=== PATIENT | male | born 1970 | race Caucasian/White ===

== ENCOUNTER 2016-05-18 20:56 | Observation (INO) | payer BC ==
[2016-05-18] MEDS ORDERED: ASPIRIN ONE (21:05)
[2016-05-18] MEDS ORDERED: NITROSTAT SL ONE (21:06)
--- NOTE | 2016-05-18 21:27 | DR.GENAD ---
HPI - PCP Primary Care Physician: VIV - Complaint/Symptoms Chief Complaint Doctors Comments: Patient states that he had left lateral chest pain onset yesteday that has gotten worse during the day. Ther was no radiation or diaphoresis. The pain is a level of 4. He also complains of dyspnea Chief Complaint:: CHEST PAIN, HARD TO BREATH - Source History Provided: Patient, Family Member - Mode of Arrival Mode of Arrival: Ambulatory - Timing Onset of Chief Complaint: 05/17/16 PMH - PMH Past Medical History: Yes Past Medical History: Anemia, Arthritis, Diabetes, Gout, Hypertension, Sleep Apnea Past Medical History Comment: RESTRICTIVE LUNG DISEASE Past Surgical History: Yes Surgical History: CABG/Valve Surgery, Cholecystectomy, Ortho Surgery, Other - Family History History of Family Medical Conditions: Yes Family Medical History: Cancer, [place] - Social History Does patient currently use any type of tobacco product: No Have you used tobacco products in the last 12 months: No Type of Tobacco Use: None Does any household member use tobacco: No Alcohol Use: None Do you use any recreational Drugs:: No Lives With: Family Lives Where: Home - infectious screening In the last 2 months have you had wt loss of >10#?: NO Have you had fever, night sweats or hemotysis?: No Have you traveled outside the country in the last 6 months?: No Isolation: Standard ROS - Review of Systems Constitutional: No Symptoms Reported Eyes: No Symptoms Reported ENTM: No Symptoms Reported Respiratoy: No Symptoms Reported Cardiovascular: No Symptoms Reported, Chest Pain Genitourinary: No Symptoms Reported Neurological: No Symptoms Reported Musculoskeletal: Chest wall Integumentary: No Symptoms Reported Hematologic/Lymphatic: No Symptoms Reported Endocrine: No Symptoms Reported Psychiatric: No Symptoms Reported All Other Systems: Reviewed and Negative PE - Vital Signs Vitals: Temperature 98.2 F Pulse Rate 80 Respiratory Rate 16 Blood Pressure [Right Arm] 102/66 Blood Pressure [Left Arm] 125/84 Blood Pressure [Standing] 106/87 Blood Pressure [Sitting] 108/76 Blood Pressure [Lying] 114/73 Blood Pressure 155/89 O2 Sat by Pulse Oximetry 95 - General Limitations: No Limitations General Appearance: Alert, In No Apparent Distress - Head Head Exam: Normal Inspection, Atraumatic - Eyes Eye exam: Normal Appearance, PERRL, EOMI - ENT ENT Exam: Normal Exam External Ear Exam: Normal External Inspection TM/Canal Exam: Bilateral Normal Nose Exam: Normal Nose Exam Mouth Exam: Normal Inspection Throat Exam: Normal Inspection - Neck Neck Exam: Normal Inspection - Chest Chest Inspection: Normal Inspection - Respiratory Respiratory Exam: Normal Lung Sounds Bilat Respiratory Exam: Bilateral Clear to Auscultation - Cardiovascular Cardiovascular Exam: Regular Rate, Normal Rhythm - Abdominal Exam Abdominal Exam: Normal Inspection Abdominal Tenderness: negative: RUQ, RLQ, LUQ, LLQ, Epigastrium, Suprapubic, Diffuse, Mild, Moderate, Severe, Other - Extremities Extremities Exam: Normal Inspection, Full ROM - Back Back Exam: Normal Inspection, Full ROM - Neurologic Neurological Exam: Alert, Oriented X3, CN II-XII Intact - Psychiatric Psychiatric Exam: Normal Affect, Normal Mood - Skin Skin Exam: Warm, Dry, Intact Course - Reevaluation 1st: Improved - Consultation Called: 10:25 (Case discussed with Dr Rosado; agreed to admit to r/o PR) ROR - Labs Reviewed Result Diagrams: 05/18/16 21:15 05/18/16 21:15 Laboratory: WBC 8.8 X10^3/uL (3.6-10.0) 05/18/16 21:15 RBC 5.46 X10^6/uL (4.7-6.0) 05/18/16 21:15 Hgb 16.1 g/dL (13.5-18.0) 05/18/16 21:15 Hct 47.6 % (42.0-54.0) 05/18/16 21:15 MCV 87.2 fL (80.0-100.0) 05/18/16 21:15 MCH 29.5 pg (27.0-34.0) 05/18/16 21:15 MCHC 33.8 g/dL (33.0-35.0) 05/18/16 21:15 RDW 14.7 % (11.6-16.5) 05/18/16 21:15 Plt Count 150 X10^3/uL (150.0-450.0) 05/18/16 21:15 MPV 9.1 fL (7.4-11.0) 05/18/16 21:15 Neut % 68.0 % (42.0-75.0) 05/18/16 21:15 Lymph % 23.3 % (21.0-51.0) 05/18/16 21:15 [place] % 6.3 % (0.0-13.0) 05/18/16 21:15 Eos % 1.2 % (0.9-2.9) 05/18/16 21:15 Baso % 1.2 % (0.2-1.0) H 05/18/16 21:15 Neut # 6.0 x10^3/uL (2.2-4.8) H 05/18/16 21:15 Lymph # 2.0 X10^3/uL (1.3-2.9) 05/18/16 21:15 [place] # 0.5 x10^3/uL (0.3-0.8) 05/18/16 21:15 Eos # 0.1 x10^3/uL (0.0-0.2) 05/18/16 21:15 Baso # 0.1 X10^3/uL (0.0-0.1) 05/18/16 21:15 Absolute Nucleated RBC 0.2 /100WBC 05/18/16 21:15 INR Target Range - 05/18/16 21:15 INR 1.04 (0.8-1.3) 05/18/16 21:15 PTT 30.1 SECONDS (22.9-36.5) 05/18/16 21:15 PTT Comment - 05/18/16 21:15 Sodium 145 mmol/L (136-145) 05/18/16 21:15 Corrected Sodium 146 mmol/L (136-145) H 05/18/16 21:15 Potassium 3.7 mmol/L (3.5-5.1) 05/18/16 21:15 Chloride 108 mmol/L (98-107) H 05/18/16 21:15 Carbon Dioxide 27.8 mmol/L (21-32) 05/18/16 21:15 BUN 14 mg/dL (7-18) 05/18/16 21:15 Creatinine 1.38 mg/dL (0.70-1.30) H 05/18/16 21:15 Est GFR (MDRD) Af Amer > 60 (>60) 05/18/16 21:15 Est GFR (MDRD) Non-Af 59 (>60) 05/18/16 21:15 Glucose 139 mg/dL (65-99) H 05/18/16 21:15 Calcium 8.3 mg/dL (8.5-10.1) L 05/18/16 21:15 Corrected Calcium TNP 05/18/16 21:15 Magnesium 1.9 mg/dL (1.7-2.9) 05/18/16 21:15 Total Bilirubin 0.60 mg/dL (0.2-1.0) 05/18/16 21:15 AST 33 Units/L (15-37) 05/18/16 21:15 ALT 47 Units/L (12-78) 05/18/16 21:15 Alkaline Phosphatase 135 Units/L (46-116) H 05/18/16 21:15 Creatine Kinase 164 Units/L (39-308) 05/18/16 21:15 CK-MB (CK-2) 1.7 ng/mL (0-4.0) 05/18/16 21:15 CK/CKMB % Calc 1.0 % (<4) 05/18/16 21:15 Troponin I < 0.02 ng/mL (0-1.5) 05/18/16 21:15 B-Natriuretic Peptide 64.9 pg/mL (0-79) 05/18/16 21:15 Total Protein 6.8 g/dL (6.4-8.2) 05/18/16 21:15 Albumin 3.9 g/dL (3.4-5.0) 05/18/16 21:15 Globulin 2.9 g/dL (2.5-4.5) 05/18/16 21:15 Albumin/Globulin Ratio 1.3 Ratio (1.1-2.1) 05/18/16 21:15 - XRAY XRAY Interpreted by: Radiologist (Chest: No acute cardiopulmonary disease) - Diagnosis Discharge Problem: Chest pain, rule out acute myocardial infarction Chest pain Qualifiers: Chest pain type: unspecified Qualified Code(s): R07.9 - Chest pain, unspecified - Discharge Plan Condition: Stable - Follow ups/Referrals Follow ups/Referrals: LATA NAM [Primary Care Provider] - 3 days - Instructions
--- NOTE | 2016-05-18 21:36 | RAD ---
HISTORY: 45-year-old male with chest pain and shortness of breath. Study: Single frontal view of the chest. Comparison: Chest radiograph December 06, 2015. Findings: Median sternotomy wires unchanged. The trachea is midline. The cardiac silhouette is unremarkable. Low lung volumes. The lungs are clear without focal infiltrate or effusion. The bony thorax is unr emarkable. IMPRESSION: 1. No acute cardiopulmonary disease. Reported By:
[2016-05-18 21:42] LABS: BASOPHILS # (AUTO) 0.1 X10^3/uL (0.0-0.1); BASOPHILS % (AUTO) 1.2 % (0.2-1.0); EOSINOPHILS # (AUTO) 0.1 x10^3/uL (0.0-0.2); EOSINOPHILS % (AUTO) 1.2 % (0.9-2.9); HEMATOCRIT 47.6 % (42.0-54.0); HEMOGLOBIN 16.1 g/dL (13.5-18.0); LYMPHOCYTES % (AUTO) 23.3 % (21.0-51.0); MEAN CORPUSCULAR HEMOGLOBIN 29.5 pg (27.0-34.0); MEAN CORPUSCULAR HGB CONC 33.8 g/dL (33.0-35.0); MEAN CORPUSCULAR VOLUME 87.2 fL (80.0-100.0); MEAN PLATELET VOLUME 9.1 fL (7.4-11.0); MONOCYTES # (AUTO) 0.5 x10^3/uL (0.3-0.8); MONOCYTES % (AUTO) 6.3 % (0.0-13.0); PLATELET COUNT 150 X10^3/uL (150.0-450.0); RED BLOOD COUNT 5.46 X10^6/uL (4.7-6.0); RED CELL DISTRIBUTION WIDTH 14.7 % (11.6-16.5); WHITE BLOOD COUNT 8.8 X10^3/uL (3.6-10.0)
[2016-05-18 21:43] LABS: ALANINE AMINOTRANSFERASE 47 Units/L (12-78); ALBUMIN 3.9 g/dL (3.4-5.0); ALKALINE PHOSPHATASE 135 Units/L (46-116); ASPARTATE AMINO TRANSFERASE 33 Units/L (15-37); BLOOD UREA NITROGEN 14 mg/dL (7-18); CALCIUM 8.3 mg/dL (8.5-10.1); CARBON DIOXIDE 27.8 mmol/L (21-32); CHLORIDE 108 mmol/L (98-107); COR NA(FOR HYPERGLY) 146 mmol/L (136-145); CREATININE 1.38 mg/dL (0.70-1.30); GLUCOSE 139 mg/dL (65-99); MAGNESIUM 1.9 mg/dL (1.7-2.9); SODIUM 145 mmol/L (136-145); TOTAL PROTEIN 6.8 g/dL (6.4-8.2); eGFR BLACK RACES > 60 (>60); eGFR NON BLACK RACES 59 (>60)
[2016-05-18 22:00] LABS: CREATINE KINASE 164 Units/L (39-308); CREATINE KINASE MB 1.7 ng/mL (0-4.0); TROPONIN I < 0.02 ng/mL (0-1.5)
[2016-05-18] MEDS ORDERED: NS 1000 ML 1,000 ML IV SCH (22:00)
[2016-05-18] MEDS ORDERED: MORPHINE SULFATE INJ 4 MG IVP PRN (22:40)
[2016-05-18] MEDS ORDERED: ZOFRAN INJ 4 MG VIAL IVP PRN (22:40)
[2016-05-18] MEDS ORDERED: NS 1000 ML 1,000 ML ONE (23:14)
[2016-05-18] MEDS: NS 1000 ML 1,000 ML IV SCH (23:16)
[2016-05-18 23:46] VITALS: BMI 38.2
[2016-05-19] MEDS: REQUIP PO SCH ×5 (00:07→21:07)
[2016-05-19 05:24] LABS: BASOPHILS # (AUTO) 0.1 X10^3/uL (0.0-0.1); BASOPHILS % (AUTO) 1.2 % (0.2-1.0); EOSINOPHILS # (AUTO) 0.1 x10^3/uL (0.0-0.2); HEMOGLOBIN 15.3 g/dL (13.5-18.0); LYMPHOCYTES # (AUTO) 2.1 X10^3/uL (1.3-2.9); LYMPHOCYTES % (AUTO) 31.3 % (21.0-51.0); MEAN CORPUSCULAR HEMOGLOBIN 29.2 pg (27.0-34.0); MEAN CORPUSCULAR HGB CONC 33.2 g/dL (33.0-35.0); MEAN PLATELET VOLUME 8.7 fL (7.4-11.0); MONOCYTES # (AUTO) 0.5 x10^3/uL (0.3-0.8); MONOCYTES % (AUTO) 6.7 % (0.0-13.0); NEUTROPHILS # (AUTO) 3.9 x10^3/uL (2.2-4.8); NEUTROPHILS % (AUTO) 58.8 % (42.0-75.0); PLATELET COUNT 132 X10^3/uL (150.0-450.0); RED BLOOD COUNT 5.23 X10^6/uL (4.7-6.0); RED CELL DISTRIBUTION WIDTH 14.8 % (11.6-16.5); WHITE BLOOD COUNT 6.7 X10^3/uL (3.6-10.0)
[2016-05-19 05:30] LABS: ALANINE AMINOTRANSFERASE 44 Units/L (12-78); ALBUMIN 3.2 g/dL (3.4-5.0); ALKALINE PHOSPHATASE 110 Units/L (46-116); ASPARTATE AMINO TRANSFERASE 25 Units/L (15-37); BLOOD UREA NITROGEN 13 mg/dL (7-18); CALCIUM 7.9 mg/dL (8.5-10.1); CHLORIDE 110 mmol/L (98-107); CHOL/HDL RATIO 6.3 (0.0-5.0); CHOLESTEROL 146 mg/dL (0-200); CKMB % 1.5 % (<4); COR CA(FOR HYPOALB) 8.5 mg/dL (8.5-10.1); COR NA(FOR HYPERGLY) 145 mmol/L (136-145); CREATINE KINASE 108 Units/L (39-308); CREATINE KINASE MB 1.6 ng/mL (0-4.0); GLUCOSE 114 mg/dL (65-99); HDL CHOLESTEROL 23 mg/dL (40-60); MAGNESIUM 1.9 mg/dL (1.7-2.9); SODIUM 145 mmol/L (136-145); TOTAL PROTEIN 6.1 g/dL (6.4-8.2); TRIGLYCERIDES 185 mg/dL (0-150); TROPONIN I < 0.02 ng/mL (0-1.5); eGFR BLACK RACES > 60 (>60); eGFR NON BLACK RACES > 60 (>60)
[2016-05-19] MEDS: NS 1000 ML 1,000 ML IV SCH (05:32)
[2016-05-19 05:41] LABS: CARBON DIOXIDE 26.1 mmol/L (21-32)
[2016-05-19] MEDS ORDERED: ZESTRIL TAB 20 MG ONE (08:47)
[2016-05-19] MEDS ORDERED: ARIMIDEX PO SCH (09:00)
[2016-05-19] MEDS ORDERED: PATIENT'S HOME MEDICATION RESPIRATORY (Omeprazole [Prilosec 40 Mg] 40 MG) PO SCH (09:00)
[2016-05-19] MEDS ORDERED: [UNRECOGNIZED DRUG - OTHER] PO SCH (09:00)
[2016-05-19] MEDS ORDERED: [UNRECOGNIZED DRUG - OTHER] PO SCH (09:00)
[2016-05-19] MEDS: CELEXA PO SCH (09:04)
[2016-05-19] MEDS: FERROUS SULFATE PO SCH (09:05)
[2016-05-19] MEDS: MOBIC TAB 15 MG PO SCH (09:05)
[2016-05-19] MEDS: ZESTRIL TAB 20 MG PO SCH (09:05)
[2016-05-19] MEDS: MICRO K EXTEN CAP 10 MEQ PO SCH (09:05)
[2016-05-19] MEDS: PRILOSEC PO SCH (09:05)
[2016-05-19 10:04] LABS: CKMB % 1.6 % (<4); CREATINE KINASE 112 Units/L (39-308); CREATINE KINASE MB 1.8 ng/mL (0-4.0); TROPONIN I < 0.02 ng/mL (0-1.5)
[2016-05-19 11:35] LABS: BILIRUBIN,URINE NEGATIVE (NEGATIVE); BLOOD/HEMOGLOBIN,URINE NEGATIVE (NEGATIVE); GLUCOSE, URINE NEGATIVE (NEGATIVE); KETONES,URINE NEGATIVE (NEGATIVE); LEUKOCYTE ESTERASE ,URINE NEGATIVE (NEGATIVE); NITRITES,URINE NEGATIVE (NEGATIVE); PROTEIN,URINE NEGATIVE (NEGATIVE); UROBILINOGEN,URINE NORMAL (NORMAL)
[2016-05-19 11:43] LABS: APPEARANCE,URINE CLEAR (CLEAR); BACTERIA,URINE NEGATIVE /HPF (NEGATIVE); COLOR,URINE YELLOW (YELLOW); RBC,URINE NEGATIVE /HPF (NEGATIVE); SQUAMOUS EPITHELIAL CELL,UR NEGATIVE /HPF (NEGATIVE)
[2016-05-19 12:03] LABS: TOTAL PSA 0.83 ng/mL (0.13-4.0)
[2016-05-19] MEDS: NS 1/2 1000 ML IV 1,000 ML IV SCH (13:09)
[2016-05-19] MEDS: PRAVACHOL PO SCH (21:07)
[2016-05-19] MEDS: NITROSTAT SL PRN ×3 (22:47→22:57)
[2016-05-19] MEDS ORDERED: RESTORIL CAP 15 MG PO PRN (23:14)
[2016-05-19] MEDS ORDERED: TYLENOL 325 MG TAB PO PRN (23:28)
[2016-05-20] MEDS ORDERED: NS 1/2 1000 ML IV 1,000 ML IV ONE (00:08)
[2016-05-20] MEDS: NS 1/2 1000 ML IV 1,000 ML IV SCH (00:10)
[2016-05-20] MEDS: REQUIP PO SCH (05:17)
[2016-05-20] MEDS ORDERED: ZESTRIL TAB 20 MG ONE (08:46)
[2016-05-20] MEDS: PRAVACHOL PO SCH (08:53)
[2016-05-20] MEDS: MOBIC TAB 15 MG PO SCH (08:54)
[2016-05-20] MEDS: CELEXA PO SCH (08:54)
[2016-05-20] MEDS: FERROUS SULFATE PO SCH (08:54)
[2016-05-20] MEDS: ZESTRIL TAB 20 MG PO SCH (08:54)
[2016-05-20] MEDS: MICRO K EXTEN CAP 10 MEQ PO SCH (08:54)
[2016-05-20] MEDS: PRILOSEC PO SCH (08:54)
[2016-05-20 10:02] VITALS: BP 153/92
--- NOTE | 2016-05-20 11:22 | PCM.PROG ---
Progress Note - Progress Note for Day of Date: 05/19/16 - Subjective Subjective: CP, SOB - Past Medical Family Social History Past Med/Fam/Surg Hx: No changes since H&P Allergies: Allergies Prednisone [From Sterapred] Adverse Reaction (Severe, Verified 12/06/15 18:53) BLINDNESS ALL STEROIDS, NONE BY PO OR IM PT STATED HAS HAD JOINT INJECTIONS WITH NO REACTION. PT STATED ONLY THEY EYE DROPS CAUSED PROBLEMS - Review of Systems ROS: No change since H&P - Vital Signs and I&O's Vital Signs: Temperature 97.6 F Pulse Rate [Apical] 56 Pulse Rate [Left] 50 Respiratory Rate 21 Blood Pressure [Right Arm] 134/71 Blood Pressure [Left Arm] 153/92 O2 Sat by Pulse Oximetry 98 Intake and Output: Intake & Output 05/17/16 05/18/16 05/19/16 05/20/16 11:59 11:59 11:59 11:59 Intake Total 453 2556 Output Total 0 1850 Balance 453 706 - Physical Exam Oriented: Normal Eyes: Normal Ear: Normal Nose: Normal Throat: Normal, Tonsillar Hypertrophy Respiratory: Diminished Cardiovascular: Edema Auscultation: Bowel Sounds: Normal Palpation: Normal Tenderness: Normal Skin: Normal Musculoskeletal: Back:Thoracic, Back:Lumbar Speech Pattern: Clear, Appropriate - Laboratory and Diagnostics Result Diagrams: 05/19/16 05:00 05/19/16 05:00 Labs: Laboratory WBC 6.7 X10^3/uL (3.6-10.0) 05/19/16 05:00 RBC 5.23 X10^6/uL (4.7-6.0) 05/19/16 05:00 Hgb 15.3 g/dL (13.5-18.0) 05/19/16 05:00 Hct 46.0 % (42.0-54.0) 05/19/16 05:00 MCV 88.0 fL (80.0-100.0) 05/19/16 05:00 MCH 29.2 pg (27.0-34.0) 05/19/16 05:00 MCHC 33.2 g/dL (33.0-35.0) 05/19/16 05:00 RDW 14.8 % (11.6-16.5) 05/19/16 05:00 Plt Count 132 X10^3/uL (150.0-450.0) L 05/19/16 05:00 MPV 8.7 fL (7.4-11.0) 05/19/16 05:00 Neut % 58.8 % (42.0-75.0) 05/19/16 05:00 Lymph % 31.3 % (21.0-51.0) 05/19/16 05:00 [place] % 6.7 % (0.0-13.0) 05/19/16 05:00 Eos % 2.0 % (0.9-2.9) 05/19/16 05:00 Baso % 1.2 % (0.2-1.0) H 05/19/16 05:00 Neut # 3.9 x10^3/uL (2.2-4.8) 05/19/16 05:00 Lymph # 2.1 X10^3/uL (1.3-2.9) 05/19/16 05:00 [place] # 0.5 x10^3/uL (0.3-0.8) 05/19/16 05:00 Eos # 0.1 x10^3/uL (0.0-0.2) 05/19/16 05:00 Baso # 0.1 X10^3/uL (0.0-0.1) 05/19/16 05:00 Absolute Nucleated RBC 0.1 /100WBC 05/19/16 05:00 INR Target Range - 05/18/16 21:15 INR 1.04 (0.8-1.3) 05/18/16 21:15 PTT 30.8 SECONDS (22.9-36.5) 05/19/16 05:00 PTT Comment - 05/19/16 05:00 D-Dimer 219 ng/mL (0-400) 05/19/16 11:05 Sodium 145 mmol/L (136-145) 05/19/16 05:00 Corrected Sodium 145 mmol/L (136-145) 05/19/16 05:00 Potassium 3.6 mmol/L (3.5-5.1) 05/19/16 05:00 Chloride 110 mmol/L (98-107) H 05/19/16 05:00 Carbon Dioxide 26.1 mmol/L (21-32) 05/19/16 05:00 BUN 13 mg/dL (7-18) 05/19/16 05:00 Creatinine 1.20 mg/dL (0.70-1.30) 05/19/16 05:00 Est GFR (MDRD) Af Amer > 60 (>60) 05/19/16 05:00 Est GFR (MDRD) Non-Af > 60 (>60) 05/19/16 05:00 Glucose 114 mg/dL (65-99) H 05/19/16 05:00 Calcium 7.9 mg/dL (8.5-10.1) L 05/19/16 05:00 Corrected Calcium 8.5 mg/dL (8.5-10.1) 05/19/16 05:00 Magnesium 1.9 mg/dL (1.7-2.9) 05/19/16 05:00 Total Bilirubin 0.70 mg/dL (0.2-1.0) 05/19/16 05:00 AST 25 Units/L (15-37) 05/19/16 05:00 ALT 44 Units/L (12-78) 05/19/16 05:00 Alkaline Phosphatase 110 Units/L (46-116) 05/19/16 05:00 Creatine Kinase 112 Units/L (39-308) 05/19/16 09:00 CK-MB (CK-2) 1.8 ng/mL (0-4.0) 05/19/16 09:00 CK/CKMB % Calc 1.6 % (<4) 05/19/16 09:00 Troponin I < 0.02 ng/mL (0-1.5) 05/19/16 09:00 B-Natriuretic Peptide 64.9 pg/mL (0-79) 05/18/16 21:15 Total Protein 6.1 g/dL (6.4-8.2) L 05/19/16 05:00 Albumin 3.2 g/dL (3.4-5.0) L 05/19/16 05:00 Globulin 2.9 g/dL (2.5-4.5) 05/19/16 05:00 Albumin/Globulin Ratio 1.1 Ratio (1.1-2.1) 05/19/16 05:00 Triglycerides 185 mg/dL (0-150) H 05/19/16 05:00 Cholesterol 146 mg/dL (0-200) 05/19/16 05:00 LDL Cholesterol, Calc 86 mg/dL (0-100) 05/19/16 05:00 HDL Cholesterol 23 mg/dL (40-60) L 05/19/16 05:00 Cholesterol/HDL Ratio 6.3 (0.0-5.0) H 05/19/16 05:00 Total PSA 0.83 ng/mL (0.13-4.0) 05/19/16 11:05 Specimen Type Clean catch urine 05/19/16 11:05 Urine Color Yellow (YELLOW) 05/19/16 11:05 Urine Appearance Clear (CLEAR) 05/19/16 11:05 Urine pH 6.0 (5.0 - 8.0) 05/19/16 11:05 Ur Specific [place] 1.020 (1.000-1.030) 05/19/16 11:05 Urine Protein Negative (NEGATIVE) 05/19/16 11:05 Urine Glucose (UA) Negative (NEGATIVE) 05/19/16 11:05 Urine Ketones Negative (NEGATIVE) 05/19/16 11:05 Urine Occult Blood Negative (NEGATIVE) 05/19/16 11:05 Urine Nitrite Negative (NEGATIVE) 05/19/16 11:05 Urine Bilirubin Negative (NEGATIVE) 05/19/16 11:05 Urine Urobilinogen Normal (NORMAL) 05/19/16 11:05 Ur Leukocyte Esterase Negative (NEGATIVE) 05/19/16 11:05 Urine RBC Negative /HPF (NEGATIVE) 05/19/16 11:05 Urine WBC Rare /HPF (NEGATIVE) 05/19/16 11:05 Ur Squamous Epith Cells Negative /HPF (NEGATIVE) 05/19/16 11:05 Urine Bacteria Negative /HPF (NEGATIVE) 05/19/16 11:05 Ur Culture Indicated? No/not indicated 05/19/16 11:05 - Plan (1) Chest pain, rule out acute myocardial infarction Status: Acute Plan: CONTINUE CARDIAC MONITORING, CONTINUE BLOOD PRESSURE AND LIPID CONTROL. DISCUSSED TRANSFER TO [facility] (2) Acute respiratory distress Status: Acute (3) GERD (gastroesophageal reflux disease) Status: Chronic Qualifiers: Esophagitis presence: E (4) Hyperlipidemia Status: Chronic Qualifiers: Hyperlipidemia type: H (5) Hypertension Status: Chronic Qualifiers: Hypertension type: essential hypertension Qualified Code(s): I10 - Essential (primary) hypertension
--- NOTE | 2016-05-20 11:27 | DR.H&P ---
H&P - History & Physical for Day of: H&P Date: 05/18/16 - Chief Complaint Chief Complaint: CP - Allergies Allergies/Adverse Reactions: Allergies Allergy/AdvReac Type Severity Reaction Status Date / Time Prednisone [From Sterapred] AdvReac Severe BLINDNESS Verified 12/06/15 18:53 - History of Present Illness History of Present Illness: ER ADMISSION AFTER PRSENTING WITH CO CHEST PAIN AND SOB. PT FEELS LIKE HE CANT GET DEEP BREATH, CENTRAL CHEST PAIN, RELIEVED WITH NTG SL. PT HAS STRESS TEST IN [place] WITH DR FAGAN. PT HAS HX OF HTN, OA, GIGI, DM. PLAN TO ADMIT FOR SERIAL CE'S AND EKG'S - Past Medical History Past Medical History: Anemia, Arthritis, Diabetes, Gout, Hypertension, Sleep Apnea - Past Surgical History Surgical History: Cholecystectomy, Ortho Surgery - Family History Family Medical History: Diabetes Mellitus, Cancer, [place], Hypertension - Social History Does patient currently use any type of tobacco product: No Have you used tobacco products in the last 12 months: No Type of Tobacco Use: None Does any household member use tobacco: No Alcohol Use: None Drug Use: None - Medications Home Medications: Citalopram 20 mg Tab [CELEXA 20 MG *] 20 mg PO DAILY 05/18/16 [History Confirmed 05/19/16] - Review of Systems Constitutional: No Symptoms Reported Eyes: No Symptoms Reported ENT: No Symptoms Reported Respiratory: Shortness of Breath, SOB with Excertion Cardiovascular: Chest Pain Gastrointestinal: No Symptoms Reported Genitourinary: No Symptoms Reported Musculoskeletal: Back Pain Skin: No Symptoms Reported Neurological: No Symptoms Reported - Physical Exam Vital Signs: Temperature 97.6 F Pulse Rate [Apical] 56 Pulse Rate [Left] 50 Respiratory Rate 21 Blood Pressure [Right Arm] 134/71 Blood Pressure [Left Arm] 153/92 O2 Sat by Pulse Oximetry 98 Oriented: Normal Eyes: Normal Ear: Normal Nose: Normal Throat: Normal Respiratory: RLL Diminished, LLL Diminished Cardiovascular: Normal, Edema : Normal Auscultation: Bowel Sounds: Normal Palpation: Normal Tenderness: Normal Skin: Normal Musculoskeletal: Back:Lumbar Psychiatric: Anxiety Speech Pattern: Clear, Appropriate - Assessment/Plan (1) Chest pain, rule out acute myocardial infarction Status: Acute Plan: ADMIT FOR SERIAL CE, EKGS CXR. REPEAT AM LABS. R/O OK. BP AND LIPID CONTROL (2) Acute respiratory distress Status: Acute (3) GERD (gastroesophageal reflux disease) Qualifiers: Esophagitis presence: E Status: Chronic (4) Hyperlipidemia Qualifiers: Hyperlipidemia type: H Status: Chronic (5) Hypertension Qualifiers: Hypertension type: essential hypertension Qualified Code(s): I10 - Essential (primary) hypertension Status: Chronic
== END 2016-05-20 11:00 | disposition short-term general hospital (02) ==
LOC: ER 21:23 → ICU 22:33
PROVIDERS: ADMIT Obstetrics & Gynecology Obstetrics; ATTEND Internal Medicine
DX: R07.89 Other chest pain (principal); R06.00 Dyspnea, unspecified; M13.89 Other specified arthritis, multiple sites; E11.65 Type 2 diabetes mellitus with hyperglycemia; I10 Essential (primary) hypertension; R06.02 Shortness of breath; K21.9 Gastro-esophageal reflux disease without esophagitis; E78.2 Mixed hyperlipidemia; E87.0 Hyperosmolality and hypernatremia; R94.4 Abnormal results of kidney function studies
CPT/HCPCS: 36415; 71010; 80053; 80061; 81001; 82550; 82553; 83735; 83880; 84153; 84484; 85025; 85378; 85610; 85730; 93005; 93010; 96365; 99284; A4222; S0170; G0378

== ENCOUNTER → 2016-12-09 | Outpatient (CLI) | payer BC ==
[2016-05-19 06:08] VITALS: BP 106/68
[2016-12-09 11:47] LABS: BASOPHILS # (AUTO) 0.1 X10^3/uL (0.0-0.1); BASOPHILS % (AUTO) 0.9 % (0.2-1.0); EOSINOPHILS % (AUTO) 0.4 % (0.9-2.9); HEMATOCRIT 46.2 % (42.0-54.0); LYMPHOCYTES # (AUTO) 1.4 X10^3/uL (1.3-2.9); LYMPHOCYTES % (AUTO) 17.3 % (21.0-51.0); MEAN CORPUSCULAR HEMOGLOBIN 29.8 pg (27.0-34.0); MEAN CORPUSCULAR HGB CONC 34.6 g/dL (33.0-35.0); MEAN CORPUSCULAR VOLUME 86.3 fL (80.0-100.0); MONOCYTES # (AUTO) 0.4 x10^3/uL (0.3-0.8); MONOCYTES % (AUTO) 4.4 % (0.0-13.0); NEUTROPHILS # (AUTO) 6.4 x10^3/uL (2.2-4.8); PLATELET COUNT 164 X10^3/uL (150.0-450.0); RED BLOOD COUNT 5.36 X10^6/uL (4.7-6.0); RED CELL DISTRIBUTION WIDTH 13.4 % (11.6-16.5); WHITE BLOOD COUNT 8.3 X10^3/uL (3.6-10.0)
[2016-12-09 11:57] LABS: HEMOGLOBIN A1C 6.9 % (4.5-6.2)
[2016-12-09 11:59] LABS: ALANINE AMINOTRANSFERASE 40 Units/L (12-78); ALBUMIN 3.6 g/dL (3.4-5.0); ALKALINE PHOSPHATASE 174 Units/L (46-116); ASPARTATE AMINO TRANSFERASE 28 Units/L (15-37); BLOOD UREA NITROGEN 19 mg/dL (7-18); CARBON DIOXIDE 25.6 mmol/L (21-32); CHLORIDE 106 mmol/L (98-107); COR NA(FOR HYPERGLY) 143 mmol/L (136-145); CREATININE 1.28 mg/dL (0.70-1.30); SODIUM 140 mmol/L (136-145); eGFR BLACK RACES > 60 (>60); eGFR NON BLACK RACES > 60 (>60)
[2016-12-09 12:02] LABS: PLATELET MORPHOLOGY COMMENT NORMAL (NORMAL)
== END ==
LOC: LAB 11:17
PROVIDERS: ATTEND Nurse Practitioner Family
DX: D69.49 Other primary thrombocytopenia (principal); E11.9 Type 2 diabetes mellitus without complications
CPT/HCPCS: 36415; 80053; 83036; 85025

== ENCOUNTER → 2016-12-23 | Outpatient (CLI) | payer BC ==
[2016-05-19 06:08] VITALS: BP 106/68
--- NOTE | 2016-12-23 16:22 | RAD ---
Examination: Chest, PA and lateral views History: Coughing up sputum Comparison reference: Portable chest, 05/18/2016 Findings: Continued normal heart size with clear lungs and pleural spaces. There is no evidence for p neumonia, atelectasis or pleural fluid. The hilar structures are symmetric. Sternal wires are present . Surgical hardware is noted in the right shoulder. Impression: No acute chest disease demonstrated. Postsurgical findings. Reported By:
== END ==
LOC: LAB 10:00
PROVIDERS: ATTEND Nurse Practitioner Family
DX: R05 Cough (principal)
CPT/HCPCS: 71020

== ENCOUNTER → 2017-02-23 | Day surgery (SDC) | payer SELFPAY ==
[~2017-02-23] MED LIST: XYLOCAINE 1 % (PLAIN) ONE
--- NOTE | 2017-02-23 09:55 | DR.UPDATE ---
H&P Update History and Physical Update: History and Physical reviewed and patient examined. Changes noted: NO Yes with the following:Agree with H&P from Dr Luo. Pt had very good results with left-sided L3-4 jasmin 02/06/16. Presents with very similar pain today. Will repeat left L3-4 JASMIN.
[2017-02-23] MEDS: MARCAINE 0.25% INJ ONE ×2 (10:11→10:13)
[2017-02-23] MEDS: KENALOG INJ 40 MG IM ONE ×2 (10:12→10:13)
[2017-02-23 10:30] VITALS: BP 145/89
== END ==
LOC: SURG1 09:31
PROVIDERS: ATTEND Internal Medicine
PROC: 3E0S3BZ Introduction of Anesthetic Agent into Epidural Space, Percutaneous Approach (ICD-10-PCS; principal; 2017-02-23 11:15)
PROC: 3E0S33Z Introduction of Anti-inflammatory into Epidural Space, Percutaneous Approach (ICD-10-PCS; principal; 2017-02-23 11:15)
DX: M54.5 Low back pain (principal)
CPT/HCPCS: 62323; 76000; A4222; S0020; J2001; J3301

== ENCOUNTER 2017-03-03 18:39 | Observation (INO) | payer BC ==
[2017-03-03] MEDS ORDERED: ZOFRAN INJ 4 MG VIAL IVP PRN (20:04)
[2017-03-03] MEDS ORDERED: PERCOCET TAB 5/325 MG PO PRN (20:04)
[2017-03-03 20:45] LABS: BASOPHILS # (AUTO) 0.1 X10^3/uL (0.0-0.1); EOSINOPHILS # (AUTO) 0.1 x10^3/uL (0.0-0.2); EOSINOPHILS % (AUTO) 0.6 % (0.9-2.9); HEMATOCRIT 49.2 % (42.0-54.0); HEMOGLOBIN 17.1 g/dL (13.5-18.0); LYMPHOCYTES # (AUTO) 2.3 X10^3/uL (1.3-2.9); LYMPHOCYTES % (AUTO) 19.9 % (21.0-51.0); MEAN CORPUSCULAR HEMOGLOBIN 29.6 pg (27.0-34.0); MEAN CORPUSCULAR HGB CONC 34.8 g/dL (33.0-35.0); MEAN CORPUSCULAR VOLUME 85.3 fL (80.0-100.0); MEAN PLATELET VOLUME 8.7 fL (7.4-11.0); MONOCYTES # (AUTO) 0.7 x10^3/uL (0.3-0.8); MONOCYTES % (AUTO) 5.8 % (0.0-13.0); NEUTROPHILS # (AUTO) 8.5 x10^3/uL (2.2-4.8); NEUTROPHILS % (AUTO) 72.7 % (42.0-75.0); PLATELET COUNT 176 X10^3/uL (150.0-450.0); RED BLOOD COUNT 5.77 X10^6/uL (4.7-6.0); RED CELL DISTRIBUTION WIDTH 13.5 % (11.6-16.5); WHITE BLOOD COUNT 11.7 X10^3/uL (3.6-10.0)
[2017-03-03 21:03] LABS: ALANINE AMINOTRANSFERASE 59 Units/L (12-78); ALBUMIN 3.4 g/dL (3.4-5.0); ALKALINE PHOSPHATASE 224 Units/L (46-116); ASPARTATE AMINO TRANSFERASE 30 Units/L (15-37); BLOOD UREA NITROGEN 19 mg/dL (7-18); CALCIUM 8.5 mg/dL (8.5-10.1); CARBON DIOXIDE 26.4 mmol/L (21-32); CHLORIDE 101 mmol/L (98-107); CKMB % 1.2 % (<4); COR NA(FOR HYPERGLY) 139 mmol/L (136-145); CREATINE KINASE 82 Units/L (39-308); CREATINE KINASE MB < 1.0 ng/mL (0-4.0); CREATININE 1.24 mg/dL (0.70-1.30); SODIUM 134 mmol/L (136-145); TOTAL PROTEIN 6.9 g/dL (6.4-8.2); TROPONIN I < 0.02 ng/mL (0-1.5); eGFR BLACK RACES > 60 (>60); eGFR NON BLACK RACES > 60 (>60)
--- NOTE | 2017-03-03 21:06 | CT ---
HISTORY: AMS, weakness Study: CT brain without contrast Comparison: 10/14/2013 Technique: Multiple axial images of the brain were obtained from the skull base to the vertex without administra tion of IV contrast. Dose reduction techniques including Automated Exposure Control (AEC) and adjust ment of mA and kV were utilized. Findings: The brain parenchyma is within normal limits for patient's age. No evidence of acute hemorrhage, mid line shift, mass effect or abnormal extra-axial fluid collection. The ventricular system is symmetri c and nondilated. The soft tissues and osseous structures are unremarkable. The visualized paranasal sinuses are clear. IMPRESSION: 1.No acute intracranial abnormality. Reported By:
[2017-03-03 21:11] VITALS: BMI 37.1
[2017-03-03 21:42] LABS: PLATELET MORPHOLOGY COMMENT NORMAL (NORMAL)
[2017-03-03 21:43] LABS: ERYTHROCYTE SEDIMENTATION RATE 4 MM/HOUR (0-15)
[2017-03-03 22:09] LABS: BILIRUBIN,URINE NEGATIVE (NEGATIVE); BLOOD/HEMOGLOBIN,URINE NEGATIVE (NEGATIVE); GLUCOSE, URINE 3+ (NEGATIVE); KETONES,URINE NEGATIVE (NEGATIVE); LEUKOCYTE ESTERASE ,URINE NEGATIVE (NEGATIVE); NITRITES,URINE NEGATIVE (NEGATIVE); PROTEIN,URINE 1+ (NEGATIVE); UROBILINOGEN,URINE NORMAL (NORMAL)
[2017-03-03 22:22] LABS: AMORPHOUS SEDIMENT,UR TRACE /HPF (NEGATIVE); APPEARANCE,URINE CLEAR (CLEAR); BACTERIA,URINE TRACE /HPF (NEGATIVE); COLOR,URINE YELLOW (YELLOW); RBC,URINE 0-1 /HPF (NEGATIVE); SQUAMOUS EPITHELIAL CELL,UR FEW /HPF (NEGATIVE)
[2017-03-03] MEDS: HumuLIN R SUBCUT PRN (22:54)
--- NOTE | 2017-03-04 00:14 | RAD ---
Chest, one view Indication: Altered mental status, weakness Comparison: 12/23/2016 Findings: Heart size is normal for AP technique. Prior median sternotomy again noted. The lungs are h ypoinflated but clear. No significant pleural effusion or pneumothorax is identified. There is no acu te osseus abnormality. Impression: No acute cardiopulmonary abnormality. Reported By:
[2017-03-04] MEDS ORDERED: TUSSIONEX PENNKINETIC SUSP PO PRN (00:45)
[2017-03-04 02:30] LABS: CKMB % 1.4 % (<4); CREATINE KINASE 74 Units/L (39-308); TROPONIN I < 0.02 ng/mL (0-1.5)
[2017-03-04] MEDS: HumuLIN R SUBCUT PRN ×2 (06:14→20:30)
[2017-03-04 08:43] LABS: CKMB % 1.5 % (<4); CREATINE KINASE 65 Units/L (39-308); CREATINE KINASE MB < 1.0 ng/mL (0-4.0); TROPONIN I < 0.02 ng/mL (0-1.5)
[2017-03-04] MEDS ORDERED: NORVASC TAB 2.5 MG ONE (08:58)
[2017-03-04 09:03] LABS: FREE T4 (FREE THYROXINE) 1.15 ng/dL (0.76-1.46); TSH (3RD GENERATION) 2.652 uIU/mL (0.358-3.74)
[2017-03-04] MEDS: NORVASC TAB 2.5 MG PO SCH (10:26)
[2017-03-04] MEDS ORDERED: ALBUTEROL SULFATE INH PRN (18:54)
--- NOTE | 2017-03-04 18:58 | DR.H&P ---
H&P - History & Physical for Day of: H&P Date: 03/03/17 - Chief Complaint Chief Complaint: CONFUSION, AMS PER FAMILY - Allergies Allergies/Adverse Reactions: Allergies Allergy/AdvReac Type Severity Reaction Status Date / Time No Known Drug Allergies Allergy Verified 03/03/17 20:50 - History of Present Illness History of Present Illness: 46 WM, PT DR RAMIREZ, ADMITTED WITH CO CONFUSION, PT CO VISION CHANGES AND ELEVATED BP, GENERALIZED WEAKNESS. PT SPOUSE STATES HE WAS CONFUSION, DISORIENTED. PT HAS PMH OF DM, HTN, OA. PLAN TO ADMIT TO ACUTE CVA, BP AND CARDIAC MONITORING. CT HEAD ON ADMISSION - Past Medical History Past Medical History: Anemia, Arthritis, Diabetes, Gout, Hypertension, Sleep Apnea - Past Surgical History Surgical History: Cholecystectomy, Ortho Surgery - Family History Family Medical History: Diabetes Mellitus, Cancer, [place], Hypertension - Social History Does any household member use tobacco: No Alcohol Use: Occasionally Drug Use: Prescription Drugs - Medications Home Medications: Albuterol Sulfate [Proair Hfa] 1 ea INH DAILY PRN 03/03/17 [History Confirmed ] Amlodipine Besylate [Amlodipine Besylate] 2.5 mg PO DAILY 03/03/17 [History Confirmed 03/03/17] Citalopram Hydrobromide [Citalopram HBr] 10 mg PO DAILY 03/03/17 [History Confirmed 03/03/17] Glimepiride [Glimepiride] 4 mg PO DAILY 03/03/17 [History Confirmed 03/03/17] Lisinopril [ZESTRIL *] 10 mg PO HS 03/03/17 [History Confirmed 03/03/17] Oxycodone HCl/Acetaminophen [Oxycodone-Acetaminophen 10-325] 1 ea PO Q8H PRN [History Confirmed 03/03/17] Pravastatin Sodium [Pravachol] 40 mg PO HS 03/03/17 [History Confirmed 03/03/17] - Review of Systems Constitutional: Weakness Eyes: Vision Change ENT: No Symptoms Reported Respiratory: Shortness of Breath Cardiovascular: Edema, Light Headedness Gastrointestinal: Nausea Genitourinary: No Symptoms Reported Musculoskeletal: Back Pain Skin: No Symptoms Reported Neurological: Weakness, Confusion - Physical Exam Vital Signs: Temperature 98.3 F Pulse Rate [Right Brachial] 66 Pulse Rate [Bilateral Radial] 75 Respiratory Rate 20 Blood Pressure [Right Arm] 106/56 Blood Pressure [Left Arm] 153/92 Blood Pressure [Standing] 106/87 Blood Pressure [Sitting] 108/76 Blood Pressure [Lying] 114/73 Blood Pressure 145/89 O2 Sat by Pulse Oximetry 96 Oriented: Person Eyes: Blurred Vision Ear: Normal Nose: Normal Throat: Normal Respiratory: Clear Throughout Cardiovascular: Normal, Edema : Normal Auscultation: Bowel Sounds: Normal Palpation: Normal Tenderness: Normal Skin: Normal Musculoskeletal: Right, Left, Knee, Back:Lumbar Psychiatric: Depression Speech Pattern: Clear, Appropriate - Assessment/Plan (1) Altered mental status Status: Acute Plan: ADMIT, SERIAL CE, CT HEAD STAT ON ADMISSION. CARDIAC MONITORING BS CONTROL AND RESUME HOME BP MEDICATION. ADMISSION LABS CBC CMP UA, BC (2) Diabetes mellitus Status: Chronic (3) GERD (gastroesophageal reflux disease) Status: Chronic (4) Hypertension Qualifiers: Status: Chronic (5) Degenerative disc disease Status: Chronic
--- NOTE | 2017-03-04 19:01 | PCM.PROG ---
Progress Note - Progress Note for Day of Date: 03/04/17 - Subjective Subjective: 46 WM ADMITTED ONE DAY WITH AMS, PT ALERT AND AWAKE THIS AM. CO CONTINUED LEFT EYE VISION IMPAIRMENT, PT STATES HE HAS CONTRAINDICATIONS FOR MRI , METAL IN CHEST. PT CO SOB AND DIZZINESS. PLAN TO CONTINUE BP CONTROL AND BS MONITORING, CTA CAROTIDS AND REPEAT AM LABS - Past Medical Family Social History Past Med/Fam/Surg Hx: No changes since H&P Allergies: Allergies No Known Drug Allergies Allergy (Verified 03/03/17 20:50) - Review of Systems ROS: No change since H&P - Vital Signs and I&O's Vital Signs: Temperature 98.3 F Pulse Rate [Right Brachial] 66 Pulse Rate [Bilateral Radial] 75 Respiratory Rate 20 Blood Pressure [Right Arm] 106/56 Blood Pressure [Left Arm] 153/92 Blood Pressure [Standing] 106/87 Blood Pressure [Sitting] 108/76 Blood Pressure [Lying] 114/73 Blood Pressure 145/89 O2 Sat by Pulse Oximetry 96 Intake and Output: Intake & Output 03/02/17 03/03/17 03/04/17 03/05/17 11:59 11:59 11:59 11:59 Intake Total 350 1310 Balance 350 1310 - Physical Exam Oriented: Person Eyes: Blurred Vision Ear: Normal Nose: Normal Throat: Normal Respiratory: Normal Cardiovascular: Normal, Edema : Normal Auscultation: Bowel Sounds: Normal Tenderness: Normal Skin: Normal Musculoskeletal: Right, Left, Knee, Back:Lumbar Psychiatric: Depression Speech Pattern: Clear, Appropriate - Laboratory and Diagnostics Result Diagrams: 03/03/17 20:32 03/03/17 20:32 Labs: Laboratory WBC 11.7 X10^3/uL (3.6-10.0) H 03/03/17 20:32 RBC 5.77 X10^6/uL (4.7-6.0) 03/03/17 20:32 Hgb 17.1 g/dL (13.5-18.0) 03/03/17 20:32 Hct 49.2 % (42.0-54.0) 03/03/17 20:32 MCV 85.3 fL (80.0-100.0) 03/03/17 20:32 MCH 29.6 pg (27.0-34.0) 03/03/17 20:32 MCHC 34.8 g/dL (33.0-35.0) 03/03/17 20:32 RDW 13.5 % (11.6-16.5) 03/03/17 20:32 Plt Count 176 X10^3/uL (150.0-450.0) 03/03/17 20:32 Plt Count Comment Adequate (ADEQUATE) 03/03/17 20:32 MPV 8.7 fL (7.4-11.0) 03/03/17 20:32 Neut % 72.7 % (42.0-75.0) 03/03/17 20:32 Lymph % 19.9 % (21.0-51.0) L 03/03/17 20:32 [place] % 5.8 % (0.0-13.0) 03/03/17 20: Eos % 0.6 % (0.9-2.9) L 03/03/17 20:32 Baso % 1.0 % (0.2-1.0) 03/03/17 20: Neut # 8.5 x10^3/uL (2.2-4.8) H 03/03/17 20:32 Lymph # 2.3 X10^3/uL (1.3-2.9) 03/03/17 20:32 [place] # 0.7 x10^3/uL (0.3-0.8) 03/03/17 20:32 Eos # 0.1 x10^3/uL (0.0-0.2) 03/03/17 20: Baso # 0.1 X10^3/uL (0.0-0.1) 03/03/17 20:32 Absolute Nucleated RBC 0.1 /100WBC 03/03/17 20:32 Total Counted 100 03/03/17 20:32 Neutrophils % (Manual) 72 % (39-76) 03/03/17 20:32 Lymphocytes % (Manual) 21 % (13-43) 03/03/17 20:32 Monocytes % (Manual) 7 % (4-9) 03/03/17 20:32 Plt Morphology Comment Normal (NORMAL) 03/03/17 20:32 RBC Morphology Normal (NORMAL) 03/03/17 20:32 ESR 4 MM/HOUR (0-15) 03/03/17 20:32 Sodium 134 mmol/L (136-145) L 03/03/17 20:32 Corrected Sodium 139 mmol/L (136-145) 03/03/17 20:32 Potassium 3.8 mmol/L (3.5-5.1) 03/03/17 20:32 Chloride 101 mmol/L (98-107) 03/03/17 20:32 Carbon Dioxide 26.4 mmol/L (21-32) 03/03/17 20:32 BUN 19 mg/dL (7-18) H 03/03/17 20:32 Creatinine 1.24 mg/dL (0.70-1.30) 03/03/17 20:32 Est GFR (MDRD) Af Amer > 60 (>60) 03/03/17 20:32 Est GFR (MDRD) Non-Af > 60 (>60) 03/03/17 20:32 Glucose 325 mg/dL (65-99) H 03/03/17 20:32 POC Glucose (mg/dL) 264 mg/dL (65-99) H 03/04/17 17:34 Calcium 8.5 mg/dL (8.5-10.1) 03/03/17 20:32 Corrected Calcium TNP 03/03/17 20:32 Magnesium 2.0 mg/dL (1.7-2.9) 03/03/17 20:32 Iron 85 ug/dL (50-175) 03/03/17 20:32 Transferrin 235 mg/dL (202-364) 03/03/17 20:32 Ferritin 674 ng/mL (26-388) H 03/03/17 20:32 Total Bilirubin 0.50 mg/dL (0.2-1.0) 03/03/17 20:32 AST 30 Units/L (15-37) 03/03/17 20:32 ALT 59 Units/L (12-78) 03/03/17 20:32 Alkaline Phosphatase 224 Units/L (46-116) H 03/03/17 20:32 Creatine Kinase 65 Units/L (39-308) 03/04/17 08:10 CK-MB (CK-2) < 1.0 ng/mL (0-4.0) 03/04/17 08:10 CK/CKMB % Calc 1.5 % (<4) 03/04/17 08:10 Troponin I < 0.02 ng/mL (0-1.5) 03/04/17 08:10 C-Reactive Protein 7.00 mg/L (0-3.0) H 03/03/17 20:32 Total Protein 6.9 g/dL (6.4-8.2) 03/03/17 20:32 Albumin 3.4 g/dL (3.4-5.0) 03/03/17 20:32 Globulin 3.5 g/dL (2.5-4.5) 03/03/17 20:32 Albumin/Globulin Ratio 1.0 Ratio (1.1-2.1) L 03/03/17 20:32 Vitamin B12 478 pg/mL (193-986) 03/03/17 20:32 Folate 6.9 ng/mL (>8.6) L 03/03/17 20:32 Free T4 1.15 ng/dL (0.76-1.46) 03/04/17 08:00 TSH 3rd Generation 2.652 uIU/mL (0.358-3.74) 03/04/17 08:00 Specimen Type Clean catch urine 03/03/17 21:52 Urine Color Yellow (YELLOW) 03/03/17 21:52 Urine Appearance Clear (CLEAR) 03/03/17 21:52 Urine pH 5.0 (5.0 - 8.0) 03/03/17 21:52 Ur Specific [place] 1.020 (1.000-1.030) 03/03/17 21:52 Urine Protein 1+ (NEGATIVE) 03/03/17 21:52 Urine Glucose (UA) 3+ (NEGATIVE) 03/03/17 21:52 Urine Ketones Negative (NEGATIVE) 03/03/17 21:52 Urine Occult Blood Negative (NEGATIVE) 03/03/17 21:52 Urine Nitrite Negative (NEGATIVE) 03/03/17 21:52 Urine Bilirubin Negative (NEGATIVE) 03/03/17 21:52 Urine Urobilinogen Normal (NORMAL) 03/03/17 21:52 Ur Leukocyte Esterase Negative (NEGATIVE) 03/03/17 21:52 Urine RBC 0-1 /HPF (NEGATIVE) 03/03/17 21:52 Urine WBC 0-1 /HPF (NEGATIVE) 03/03/17 21:52 Ur Squamous Epith Cells Few /HPF (NEGATIVE) 03/03/17 21:52 Amorphous Sediment Trace /HPF (NEGATIVE) 03/03/17 21:52 Urine Bacteria Trace /HPF (NEGATIVE) 03/03/17 21:52 Ur Culture Indicated? Yes/culture set up 03/03/17 21:52 - Plan (1) Altered mental status Status: Acute Plan: SERIAL CE, CT HEAD STAT ON ADMISSION. CONTINUE CARDIAC MONITORING BS CONTROL AND RESUME HOME BP MEDICATION. AM LABS CBC CMP. CULTURES PENDING RO CAROTID ARTERY STENOSIS (2) Diabetes mellitus Status: Chronic (3) GERD (gastroesophageal reflux disease) Status: Chronic (4) Hypertension Status: Chronic Qualifiers: (5) Degenerative disc disease Status: Chronic
[2017-03-04] MEDS ORDERED: VENTOLIN or PROAIR HFA IN PRN (19:13)
[2017-03-04] MEDS ORDERED: PERCOCET TAB 5/325 MG PO PRN (19:14)
[2017-03-04] MEDS ORDERED: PROVENTIL NEB TX 0.083% 2.5MG/ 3ML NEB PRN (19:17)
[2017-03-04] MEDS ORDERED: SNACK - Diabetic Appropriate PO SCH (20:00)
[2017-03-04] MEDS ORDERED: SINGULAIR TAB 10 MG PO SCH (21:00)
[2017-03-04] MEDS ORDERED: ZESTRIL TAB 10 MG PO SCH ×2 (21:00)
[2017-03-04] MEDS ORDERED: PRAVACHOL PO SCH (21:00)
[2017-03-04] MEDS: REQUIP PO SCH (21:53)
[2017-03-04] MEDS ORDERED: REQUIP PO SCH (22:00)
--- NOTE | 2017-03-04 22:36 | CT ---
CT ANGIOGRAPHY NECK CLINICAL HISTORY: 46-year-old male with dizziness and vision impairment. COMPARISON: CT head 03/03/2017. TECHNIQUE: Multiple axial CT images were obtained from the skull base to the aortic arch prior to an d following the administration of IV contrast and reformatted in the sagittal and coronal planes. Rot ating 3D and MIP reformats are submitted. FINDINGS: The take-off of the great vessels is conventional. The origins of the common carotid and ve rtebral arteries are patent. There is no evidence of dissection or high grade stenosis of the carotid or vertebral systems. The vertebral arteries are codominant. The vertebral arteries terminate in a n ormal appearing basilar artery. The carotid bifurcations are normal in appearance. 4 mm punctate metallic object within the subcutaneous fat of the right neck. Multiple low-attenuation subcentimeter nodules within the left thyroid gland. The soft tissues of the neck are otherwise with in normal limits. The visualized lung apices are clear. Congenital nonunion posterior arch C1 with th e remaining osseous structures unremarkable. IMPRESSION: 1. No dissection or high grade stenosis of the carotid or vertebral systems. 2. Multiple low-attenuation subcentimeter nodules left thyroid gland, correlate with serology and ult rasound if not previously performed. 3. 4 mm punctate metallic object within the subcutaneous fat of the right neck. Reported By:
[2017-03-05 05:46] LABS: ALANINE AMINOTRANSFERASE 62 Units/L (12-78); ALBUMIN 3.5 g/dL (3.4-5.0); ALKALINE PHOSPHATASE 221 Units/L (46-116); ASPARTATE AMINO TRANSFERASE 34 Units/L (15-37); BLOOD UREA NITROGEN 16 mg/dL (7-18); CALCIUM 8.8 mg/dL (8.5-10.1); CARBON DIOXIDE 31.5 mmol/L (21-32); CHLORIDE 100 mmol/L (98-107); COR NA(FOR HYPERGLY) 141 mmol/L (136-145); CREATININE 1.37 mg/dL (0.70-1.30); SODIUM 137 mmol/L (136-145); TOTAL PROTEIN 7.2 g/dL (6.4-8.2); eGFR BLACK RACES > 60 (>60); eGFR NON BLACK RACES 59 (>60)
[2017-03-05 05:50] LABS: BASOPHILS % (AUTO) 0.5 % (0.2-1.0); EOSINOPHILS # (AUTO) 0.1 x10^3/uL (0.0-0.2); HEMATOCRIT 50.1 % (42.0-54.0); HEMOGLOBIN 17.4 g/dL (13.5-18.0); LYMPHOCYTES # (AUTO) 2.9 X10^3/uL (1.3-2.9); LYMPHOCYTES % (AUTO) 27.8 % (21.0-51.0); MEAN CORPUSCULAR HGB CONC 34.8 g/dL (33.0-35.0); MEAN CORPUSCULAR VOLUME 86.2 fL (80.0-100.0); MEAN PLATELET VOLUME 8.9 fL (7.4-11.0); MONOCYTES # (AUTO) 0.7 x10^3/uL (0.3-0.8); MONOCYTES % (AUTO) 6.7 % (0.0-13.0); NEUTROPHILS # (AUTO) 6.6 x10^3/uL (2.2-4.8); PLATELET COUNT 182 X10^3/uL (150.0-450.0); RED BLOOD COUNT 5.81 X10^6/uL (4.7-6.0); RED CELL DISTRIBUTION WIDTH 13.5 % (11.6-16.5); WHITE BLOOD COUNT 10.3 X10^3/uL (3.6-10.0)
[2017-03-05] MEDS: HumuLIN R SUBCUT PRN ×2 (05:59→11:34)
[2017-03-05] MEDS: REQUIP PO SCH ×2 (06:02→14:09)
[2017-03-05] MEDS ORDERED: NORVASC TAB 2.5 MG ONE (07:10)
[2017-03-05] MEDS ORDERED: PATIENT'S HOME MEDICATION (Omeprazole [Prilosec 40 Mg] 40 MG) PO SCH (09:00)
[2017-03-05] MEDS ORDERED: CITALOPRAM HYDROBROMIDE 10 MG PO SCH (09:00)
[2017-03-05] MEDS ORDERED: NORVASC TAB 2.5 MG PO SCH (09:00)
[2017-03-05] MEDS ORDERED: PriLOSEC PO SCH (09:00)
[2017-03-05] MEDS ORDERED: CELEXA PO SCH (09:00)
[2017-03-05] MEDS ORDERED: AMARYL TAB 4 MG PO SCH (09:00)
[2017-03-05] MEDS: NORVASC TAB 2.5 MG PO SCH (09:51)
[2017-03-05 13:38] VITALS: BP 97/63
[2017-03-05] MEDS ORDERED: SNACK - Diabetic Appropriate PO SCH (20:00)
[2017-03-05] MEDS ORDERED: LEVEMIR SC SCH (21:00)
== END 2017-03-05 15:50 | disposition home or self-care (01) ==
LOC: MED/SURG 18:39
PROVIDERS: ADMIT Internal Medicine; ATTEND Internal Medicine
DX: R41.82 Altered mental status, unspecified (principal); E11.65 Type 2 diabetes mellitus with hyperglycemia; I10 Essential (primary) hypertension; K21.9 Gastro-esophageal reflux disease without esophagitis; R53.1 Weakness; R94.31 Abnormal electrocardiogram [ECG] [EKG]; R06.02 Shortness of breath; R42 Dizziness and giddiness; D72.828 Other elevated white blood cell count; H53.8 Other visual disturbances
CPT/HCPCS: 36415; 70450; 70498; 71045; 80053; 81001; 82550; 82553; 82607; 82728; 82746; 83540; 83735; 84439; 84443; 84466; 84484; 85025; 85652; 86140; 87040; 87086; 93005; 93010; 94640; A4222; G0378; J1815; J7613

== ENCOUNTER 2017-04-16 16:03 | Emergency (ER) | payer BC ==
[~2017-04-16 16:03] MED LIST changes: +NS 1000 ML 1,000 ML ONE; -XYLOCAINE 1 % (PLAIN) ONE; +ZOFRAN INJ 4 MG VIAL ONE
[2017-04-16] MEDS ORDERED: NS 1000 ML 1,000 ML IV ONE (16:11)
[2017-04-16] MEDS ORDERED: ZOFRAN INJ 4 MG VIAL IVP ONE (16:11)
[2017-04-16] MEDS ORDERED: TORADOL 30 MG VIAL IVP ONE (16:11)
[2017-04-16] MEDS ORDERED: TORADOL 30 MG VIAL ONE (16:12)
[2017-04-16 16:23] VITALS: BP 106/74; BMI 37.7
--- NOTE | 2017-04-16 17:07 | CT ---
CT abdomen and pelvis without contrast Indication: Right flank pain Technique: Helical CT images of the abdomen and pelvis were obtained without IV contrast. Reformatted images in the coronal and sagittal planes were also generated for review. Comparison: 10/24/14 Findings: Lung bases are clear. Prior median sternotomy and degenerative changes of the spine are not ed. No aggressive osseous lesions are identified. Within the limits of a noncontrast exam, the liver is diffusely steatotic but normal in size and conf iguration without focal lesion. The gallbladder is surgically absent. The spleen, pancreas and adrena ls are unremarkable. There is a 2 mm nonobstructing stone within the lower pole of the right kidney. There is very mild right-sided hydroureteronephrosis secondary to a 3 mm stone within the proximal-mi d right ureter (best appreciated on coronal image 37, series 5). No additional radiopaque urinary tra ct stones are identified and there is no left-sided hydroureteronephrosis. There is no bowel inflammation or obstruction. The appendix is normal. The IVC, abdominal aorta and u rinary bladder are normal. The prostate is normal in size and centrally calcified. No free air, free fluid or lymphadenopathy is identified. Impression: Very mild right-sided hydroureteronephrosis secondary to a 3 mm stone within the proximal-mid right u reter. Additional nonobstructing right-sided nephrolithiasis. Hepatic steatosis and additional incidental findings, as above. Reported By:
--- NOTE | 2017-04-16 17:32 | DR.ABDMALE ---
HPI - Time seen Time seen: 16:30 - PCP Primary Care Physician: yuni espinoza - Complaint Chief Complaint Doctors Comments: Patient presents with complaint of right flank pain radiating to right inguinal area of one days duration Chief Complaint:: pt having right flank pain that radiates to his abd that started about a hour ago - Source History provided by:: self - Mode of arrival Mode of Arrival: Wheelchair - Timing Onset of Chief Complaint: 04/16/17 PMH - PMH Past Medical History: Yes Past Medical History: Anemia, Arthritis, Diabetes, Gout, Hypertension, Sleep Apnea Past Surgical History: Yes Surgical History: Cholecystectomy, Ortho Surgery - Family History History of Family Medical Conditions: Yes Family Medical History: Diabetes Mellitus, Cancer, [place], Hypertension - Social History Does patient currently use any type of tobacco product: No Have you used tobacco products in the last 12 months: No Type of Tobacco Use: None Does any household member use tobacco: No Alcohol Use: Rarely Do you use any recreational Drugs:: No Lives With: Family Lives Where: Home - infectious screening In the last 2 months have you had wt loss of >10#?: NO Have you had fever, night sweats or hemotysis?: No Have you traveled outside the country in the last 6 months?: No Isolation: Standard ROS - Review of Systems Eyes: No Symptoms Reported ENTM: No Symptoms Reported Respiratoy: No Symptoms Reported Cardiovascular: No Symptoms Reported Gastrointestinal/Abdominal: No Symptoms Reported Genitourinary: No Symptoms Reported Neurological: No Symptoms Reported Musculoskeletal: No Symptoms Reported Integumentary: No Symptoms Reported Hematologic/Lymphatic: No Symptoms Reported Endocrine: No Symptoms Reported Psychiatric: No Symptoms Reported All Other Systems: Reviewed and Negative PE - Vital Signs Vital Signs: Temp Pulse Resp BP BP BP BP 04/16/17 16:15 98.9 F 75 16 106/74 03/05/17 12:00 97/63 97/63 03/05/17 04:00 100/66 10/14/13 03:23 114/73 BP BP Pulse Ox 04/16/17 16:15 96 03/05/17 12:00 03/05/17 04:00 10/14/13 03:23 108/76 106/87 - General Limitations: No Limitations General Appearance: Alert, In No Apparent Distress - Head Head Exam: Normal Inspection, Atraumatic - Eyes Eye exam: Normal Appearance, PERRL, EOMI - ENT ENT Exam: Normal Exam - Neck Neck Exam: Normal Inspection, Full ROM - Chest Chest Inspection: Normal Inspection, Symmetric Chest Wall Rise - Respiratory Respiratory Exam: Normal Lung Sounds Bilat Respiratory Exam: Bilateral Clear to Auscultation - Cardiovascular Cardiovascular Exam: Regular Rate, Normal Rhythm - Abdominal Exam Abdominal Exam: Normal Inspection, Normal Bowel Sounds Abdominal Tenderness: Other (right flank pain) - Rectal Rectal Exam: Deferred - Back Back Exam: Normal Inspection - Extremeties Extremities Exam: Normal Inspection, Full ROM - Exam: Male: Deferred - Neurologic Neurological Exam: Alert, Oriented X3, CN II-XII Intact - Psychiatric Psychiatric Exam: Normal Affect - Skin Skin Exam: Warm, Dry, Intact Course - Reevaluation 1st: Improved ROR - XRAY XRAY Interpreted by: Radiologist (CT Abd/Pel: The liver is diffusely steatotic but normal in size and configuration without focal lesion. The gallbladder is surgically absent. The spleen, pancreas and adrenals are unremarkable. There is a 2mm nonobstructing stone within the lower ple of the right kidney. There is verym ild right sided hydroureteronephrosis secondary to a 3mm stone within the proximal mid right ureter. No additional radiopaque urinary tract stones are identified and there is no left sided hydroureteronephrosis. There is no bowel inflammation or obstruction. The apendix is normal. The IVC abdominal aorta and urinary bladder are normal. The postate is normal in size and centrally calcified. No fgre air, free fluid or lymphadenopathy is identified.) - Diagnosis Discharge Problem: Hydroureteronephrosis, right sided nephrolithiasis - Discharge Plan Condition: Stable - Follow ups/Referrals Follow ups/Referrals: RAÚL RAMIREZ [Primary Care Provider] - 3 days - Instructions
== END 2017-04-16 18:02 | disposition home or self-care (01) ==
LOC: ER 16:03
DX: N13.30 Unspecified hydronephrosis (principal); N20.0 Calculus of kidney; K76.0 Fatty (change of) liver, not elsewhere classified; R10.84 Generalized abdominal pain
CPT/HCPCS: 74176; 96365; 96367; 96374; 96375; 99283; A4222; J1885; J2405

== ENCOUNTER 2017-10-05 16:13 | Observation (INO) ==
[2017-10-05] MEDS: NS 1000 ML 1,000 ML IV SCH (17:55)
[2017-10-05] MEDS: PROTONIX INJ 40 MG VIAL IVP SCH (17:55)
[2017-10-05 18:05] LABS: ABG ALLEN TEST POS; ABG BASE EXCESS 5.8 mmol/L (-2.0-2.0); ABG HCO3 30.6 mmol/L (22-26)
[2017-10-05 18:09] VITALS: BMI 34.7
[2017-10-05 18:09] LABS: BASOPHILS # (AUTO) 0.2 X10^3/uL (0.0-0.1); BASOPHILS % (AUTO) 2.6 % (0.2-1.0); EOSINOPHILS # (AUTO) 0.1 x10^3/uL (0.0-0.2); EOSINOPHILS % (AUTO) 1.2 % (0.9-2.9); HEMATOCRIT 44.7 % (42.0-54.0); HEMOGLOBIN 15.5 g/dL (13.5-18.0); LYMPHOCYTES # (AUTO) 1.9 X10^3/uL (1.3-2.9); LYMPHOCYTES % (AUTO) 29.4 % (21.0-51.0); MEAN CORPUSCULAR HEMOGLOBIN 30.3 pg (27.0-34.0); MEAN CORPUSCULAR HGB CONC 34.8 g/dL (33.0-35.0); MEAN CORPUSCULAR VOLUME 87.1 fL (80.0-100.0); MEAN PLATELET VOLUME 9.2 fL (7.4-11.0); MONOCYTES # (AUTO) 0.4 x10^3/uL (0.3-0.8); MONOCYTES % (AUTO) 5.9 % (0.0-13.0); NEUTROPHILS # (AUTO) 3.9 x10^3/uL (2.2-4.8); NEUTROPHILS % (AUTO) 60.9 % (42.0-75.0); PLATELET COUNT 140 X10^3/uL (150.0-450.0); RED BLOOD COUNT 5.14 X10^6/uL (4.7-6.0); RED CELL DISTRIBUTION WIDTH 13.3 % (11.6-16.5); WHITE BLOOD COUNT 6.3 X10^3/uL (3.6-10.0)
[2017-10-05 18:10] LABS: BILIRUBIN,URINE NEGATIVE (NEGATIVE); BLOOD/HEMOGLOBIN,URINE NEGATIVE (NEGATIVE); GLUCOSE, URINE 4+ (NEGATIVE); KETONES,URINE NEGATIVE (NEGATIVE); LEUKOCYTE ESTERASE ,URINE NEGATIVE (NEGATIVE); NITRITES,URINE NEGATIVE (NEGATIVE); PROTEIN,URINE NEGATIVE (NEGATIVE); UROBILINOGEN,URINE NORMAL (NORMAL)
[2017-10-05 18:19] LABS: APPEARANCE,URINE CLEAR (CLEAR); COLOR,URINE YELLOW (YELLOW)
[2017-10-05 18:19] LABS: SERUM ACETONE NEGATIVE (NEGATIVE)
[2017-10-05 18:23] LABS: ALANINE AMINOTRANSFERASE 56 Units/L (12-78); ALBUMIN 3.6 g/dL (3.4-5.0); ALKALINE PHOSPHATASE 302 Units/L (46-116); ASPARTATE AMINO TRANSFERASE 34 Units/L (15-37); BLOOD UREA NITROGEN 11 mg/dL (7-18); CALCIUM 8.5 mg/dL (8.5-10.1); CARBON DIOXIDE 29.1 mmol/L (21-32); CHLORIDE 97 mmol/L (98-107); COR NA(FOR HYPERGLY) 144 mmol/L (136-145); CREATININE 1.37 mg/dL (0.70-1.30); SODIUM 134 mmol/L (136-145); eGFR NON BLACK RACES 59 (>60)
--- NOTE | 2017-10-05 18:35 | RAD ---
HISTORY: Shortness of breath Study: Single view of the chest. Comparison: None. Findings: The cardiomediastinal silhouette is normal. No focal consolidations, pleural effusions or pneumothora x. Osseous structures demonstrate no acute abnormality. IMPRESSION: 1. No acute cardiopulmonary process. Reported By:
[2017-10-05 18:44] LABS: PLATELET MORPHOLOGY COMMENT NORMAL (NORMAL)
[2017-10-05] MEDS: HumuLIN R SUBCUT PRN ×2 (18:59→21:25)
[2017-10-05] MEDS: SNACK - Diabetic Appropriate PO SCH (20:00)
[2017-10-05] MEDS: COLACE CAP 100 MG PO SCH (21:27)
[2017-10-06] MEDS: NS 1000 ML 1,000 ML IV SCH ×4 (00:35→20:15)
[2017-10-06] MEDS: HumuLIN R SUBCUT PRN ×3 (05:49→17:08)
[2017-10-06 06:12] LABS: BASOPHILS % (AUTO) 0.7 % (0.2-1.0); EOSINOPHILS # (AUTO) 0.1 x10^3/uL (0.0-0.2); EOSINOPHILS % (AUTO) 1.5 % (0.9-2.9); HEMATOCRIT 41.5 % (42.0-54.0); HEMOGLOBIN 14.6 g/dL (13.5-18.0); LYMPHOCYTES # (AUTO) 1.7 X10^3/uL (1.3-2.9); LYMPHOCYTES % (AUTO) 32.2 % (21.0-51.0); MEAN CORPUSCULAR HEMOGLOBIN 30.4 pg (27.0-34.0); MEAN CORPUSCULAR HGB CONC 35.2 g/dL (33.0-35.0); MEAN CORPUSCULAR VOLUME 86.4 fL (80.0-100.0); MEAN PLATELET VOLUME 9.3 fL (7.4-11.0); MONOCYTES # (AUTO) 0.3 x10^3/uL (0.3-0.8); MONOCYTES % (AUTO) 5.9 % (0.0-13.0); NEUTROPHILS # (AUTO) 3.1 x10^3/uL (2.2-4.8); NEUTROPHILS % (AUTO) 59.7 % (42.0-75.0); PLATELET COUNT 115 X10^3/uL (150.0-450.0); RED CELL DISTRIBUTION WIDTH 13.3 % (11.6-16.5); WHITE BLOOD COUNT 5.3 X10^3/uL (3.6-10.0)
[2017-10-06 06:22] LABS: ALANINE AMINOTRANSFERASE 49 Units/L (12-78); ALBUMIN 2.9 g/dL (3.4-5.0); ALKALINE PHOSPHATASE 234 Units/L (46-116); ASPARTATE AMINO TRANSFERASE 34 Units/L (15-37); BLOOD UREA NITROGEN 12 mg/dL (7-18); CARBON DIOXIDE 29.2 mmol/L (21-32); CHLORIDE 103 mmol/L (98-107); COR CA(FOR HYPOALB) 8.9 mg/dL (8.5-10.1); COR NA(FOR HYPERGLY) 144 mmol/L (136-145); CREATININE 1.13 mg/dL (0.70-1.30); SODIUM 138 mmol/L (136-145); TOTAL PROTEIN 5.9 g/dL (6.4-8.2); eGFR NON BLACK RACES > 60 (>60)
[2017-10-06] MEDS: PROTONIX INJ 40 MG VIAL IVP SCH (09:50)
[2017-10-06] MEDS: CELEXA PO SCH (09:50)
[2017-10-06] MEDS: REQUIP PO SCH ×2 (09:50→20:56)
[2017-10-06] MEDS: AMARYL TAB 4 MG PO SCH (09:51)
--- NOTE | 2017-10-06 13:13 | DR.H&P ---
H&P - History & Physical for Day of: H&P Date: 10/05/17 - Chief Complaint Chief Complaint: high blood sugar, vision blurry - History of Present Illness History of Present Illness: 47 WM DIRECT ADMIT FROM DR SANTANA OFFICE WITH CO ELEVATED BLOOD SUGAR AND EPISODES OF BLURRED VISION. PT STATES HE HAS BEEN TAKING HIS LEVEMIR DIRECTED, NOT CHECKING BLOOD SUGAR AT HOME, REPORTS INCREASED URINATION. PT WAS SEEN IN ER OVER THE PAST WEEK END WITH BLOOD SUGAR REPORTED IN 600'S. PT STATES HE WAS GIVEN INSULIN AND IV FLUIDS THEN /DC HOME. PT DENIES ANY CP OR INCREASED SOB. PT ALSO CO FATIGUE, PT WAS HYPONATREMIC ON LABS COLLECTED DURING ER STAY. PT HAS PMH OF DM, HTN, OA, MACULAR DEGENERATION, NEUROPAHTY, GIGI, COPD. PT ADMITTED FOR TREATMENT OF ACUTE ILLNESS, HYPERGLYCEMIA , DEHYDRATION. - Past Medical History Past Medical History: Hypertension, Diabetes, Anemia, Arthritis, Gout, Sleep Apnea - Past Surgical History Surgical History: Cholecystectomy, Ortho Surgery - Family History Family Medical History: Diabetes Mellitus, Cancer, [place], Hypertension - Social History Does patient currently use any type of tobacco product: No Have you used tobacco products in the last 12 months: No Type of Tobacco Use: None Does any household member use tobacco: No Alcohol Use: Occasionally Drug Use: None, Prescription Drugs - Medications Home Medications: No Known Drug Allergies Allergy (Verified 08/01/17 16:52) CONTINUE taking the following medications metoclopramide HCl 1 mg PO BID 10/05/17 [History] vitamins A,C,[id number] [PreserVision AREDS] 2 mg PO BID 10/05/17 [History] - Review of Systems Constitutional: Weakness Eyes: Vision Change (EPISODES OF BLURRED VISION) ENT: No Symptoms Reported Respiratory: No Symptoms Reported Cardiovascular: Edema Gastrointestinal: Nausea Genitourinary: Frequency Musculoskeletal: Back Pain Skin: No Symptoms Reported Neurological: No Symptoms Reported - Physical Exam Vital Signs: Temperature 98.1 F Pulse Rate [Apical] 63 Respiratory Rate 19 Blood Pressure [Right Arm] 105/60 Blood Pressure [Left Arm] 110/73 Blood Pressure [Standing] 106/87 Blood Pressure [Sitting] 108/76 Blood Pressure [Lying] 114/73 Blood Pressure 122/74 O2 Sat by Pulse Oximetry 96 Oriented: Normal Eyes: Blurred Vision Ear: Normal Nose: Normal Throat: Normal Respiratory: RLL Diminished, LLL Diminished Cardiovascular: Normal, Edema (TRACE BILATERAL LE EDEMA) : Normal Auscultation: Bowel Sounds: Normal Palpation: Normal Tenderness: Normal Skin: Decreased Turgur Musculoskeletal: Back:Lumbar Psychiatric: Anxiety Speech Pattern: Clear, Appropriate. negative: Delayed, Slurred - Assessment/Plan (1) Acute hyperglycemia Status: Acute Plan: ADMIT, ADMISSION LABS CBC CMP URINE AND SERUM ACETONE ABG, CXR. BP MONITORING, GENTLE HYDRATION, CARIDAC MONITORING. VERIFY HOME MEDS, PPI, NAUSEA CONTROL. UA, FSBS, SSI, RESUME LEVEMIR (2) Diabetes mellitus Status: Chronic (3) Hypertension Qualifiers: Status: Chronic (4) Hyperlipidemia Status: Chronic (5) GERD (gastroesophageal reflux disease) Status: Chronic (6) Sleep apnea Status: Chronic (7) Degenerative disc disease Status: Chronic - Allergies Allergies/Adverse Reactions: Allergies Allergy/AdvReac Type Severity Reaction Status Date / Time No Known Drug Allergies Allergy Verified 08/01/17 16:52
--- NOTE | 2017-10-06 13:26 | PCM.PROG ---
Progress Note - Progress Note for Day of Date of Exam: 10/06/17 - Subjective Subjective: 47 WM ADMITTED ONE DAY AGO WITH CO ELEVATED BLOOD SUGAR. PT HAD NEGATIVE URINE AND SERUM ACETONE. PT CURRENTLY ON IV HYDRATION WITH NS AND SSI THERAPY. PT DOES REPORT NON COMPLIANCE WITH DIET, HOWEVER NOTHING NEW IN ROUTINE TO CAUSE SUDDEN INCREASED IN BS. PT EXPERIENCED HYPOTENSION DURING THIS NIGHT, CURRENTLY STABLE AND DENIES BEING SYMPTOMATIC. PT TOOK [facility] ON WEDNESDAY MORNING NO ANTIHYPERTENSIVE MEDS LAST PM. HOLDING ANTIHYPERTENSIVE, ENCOURAGED INCREASED ORAL HYDRATION, 1800 ADA DIET - Past Medical Family Social History Past Med/Fam/Surg Hx: No changes since H&P Allergies: Allergies No Known Drug Allergies Allergy (Verified 08/01/17 16:52) - Review of Systems ROS: No change since H&P - Vital Signs and I&O's Vital Signs: Temperature 98.1 F Pulse Rate [Apical] 63 Respiratory Rate 19 Blood Pressure [Right Arm] 105/60 Blood Pressure [Left Arm] 110/73 Blood Pressure [Standing] 106/87 Blood Pressure [Sitting] 108/76 Blood Pressure [Lying] 114/73 Blood Pressure 122/74 O2 Sat by Pulse Oximetry 96 Intake and Output: Intake & Output 10/04/17 10/05/17 10/06/17 10/07/17 11:59 11:59 11:59 11:59 Intake Total 2607 / 2607 Balance 2607 / 2607 - Physical Exam Oriented: Normal Eyes: Blurred Vision (EPISODES OF BLURRED VISION) Ear: Normal Nose: Normal Throat: Normal Respiratory: Diminished Cardiovascular: Normal, Edema (TRACE BILATERAL LE EDEMA) : Normal Auscultation: Bowel Sounds: Normal Tenderness: Normal Skin: Decreased Turgur Musculoskeletal: Back:Lumbar Psychiatric: Anxiety Speech Pattern: Clear, Appropriate. negative: Delayed, Slurred - Laboratory and Diagnostics Result Diagrams: 10/06/17 05:40 10/06/17 05:40 Labs: Laboratory WBC 5.3 X10^3/uL (3.6-10.0) 10/06/17 05:40 RBC 4.80 X10^6/uL (4.7-6.0) 10/06/17 05:40 Hgb 14.6 g/dL (13.5-18.0) 10/06/17 05:40 Hct 41.5 % (42.0-54.0) L 10/06/17 05:40 MCV 86.4 fL (80.0-100.0) 10/06/17 05:40 MCH 30.4 pg (27.0-34.0) 10/06/17 05:40 MCHC 35.2 g/dL (33.0-35.0) H 10/06/17 05:40 RDW 13.3 % (11.6-16.5) 10/06/17 05:40 Plt Count 115 X10^3/uL (150.0-450.0) L 10/06/17 05:40 Plt Count Comment Decreased (ADEQUATE) 10/05/17 18:00 MPV 9.3 fL (7.4-11.0) 10/06/17 05:40 Neut % (Auto) 59.7 % (42.0-75.0) 10/06/17 05:40 Lymph % (Auto) 32.2 % (21.0-51.0) 10/06/17 05:40 [place] % (Auto) 5.9 % (0.0-13.0) 10/06/17 05:40 Eos % (Auto) 1.5 % (0.9-2.9) 10/06/17 05:40 Baso % (Auto) 0.7 % (0.2-1.0) 10/06/17 05:40 Neut # (Auto) 3.1 x10^3/uL (2.2-4.8) 10/06/17 05:40 Lymph # (Auto) 1.7 X10^3/uL (1.3-2.9) 10/06/17 05:40 [place] # (Auto) 0.3 x10^3/uL (0.3-0.8) 10/06/17 05:40 Eos # (Auto) 0.1 x10^3/uL (0.0-0.2) 10/06/17 05:40 Baso # (Auto) 0.0 X10^3/uL (0.0-0.1) 10/06/17 05:40 Absolute Nucleated RBC 0.1 /100WBC 10/06/17 05:40 Total Counted 100 10/05/17 18:00 Neutrophils % (Manual) 63 % (39-76) 10/05/17 18:00 Lymphocytes % (Manual) 26 % (13-43) 10/05/17 18:00 Monocytes % (Manual) 7 % (4-9) 10/05/17 18:00 Atypical Lymphocytes 4 10/05/17 18:00 Plt Morphology Comment Normal (NORMAL) 10/05/17 18:00 RBC Morphology Normal (NORMAL) 10/05/17 18:00 Sample Site Rr 10/05/17 18:00 ABG pH 7.450 (7.35-7.45) 10/05/17 18:00 ABG pCO2 44.0 mmHg (35.0-45.0) 10/05/17 18:00 ABG pO2 79.0 mmHg (80.0-100.0) L 10/05/17 18:00 ABG HCO3 30.6 mmol/L (22-26) H* 10/05/17 18:00 ABG O2 Saturation 96.0 % (90-100) 10/05/17 18:00 ABG Base Excess 5.8 mmol/L (-2.0-2.0) H 10/05/17 18:00 [place] Test Pos 10/05/17 18:00 A-a Gradient 16.0 mmHg 10/05/17 18:00 FiO2 21.000 10/05/17 18:00 Blood Gas Comments Pt franco well. cdn 10/05/17 18:00 Sodium 138 mmol/L (136-145) 10/06/17 05:40 Corrected Sodium 144 mmol/L (136-145) 10/06/17 05:40 Potassium 3.9 mmol/L (3.5-5.1) 10/06/17 05:40 Chloride 103 mmol/L (98-107) 10/06/17 05:40 Carbon Dioxide 29.2 mmol/L (21-32) 10/06/17 05:40 BUN 12 mg/dL (7-18) 10/06/17 05:40 Creatinine 1.13 mg/dL (0.70-1.30) 10/06/17 05:40 Est GFR (MDRD) Af Amer > 60 (>60) 10/06/17 05:40 Est GFR (MDRD) Non-Af > 60 (>60) 10/06/17 05:40 Glucose 330 mg/dL (65-99) H 10/06/17 05:40 POC Glucose (mg/dL) 340 mg/dL (65-99) H 10/06/17 11:08 Calcium 8.0 mg/dL (8.5-10.1) L 10/06/17 05:40 Corrected Calcium 8.9 mg/dL (8.5-10.1) 10/06/17 05:40 Magnesium 1.7 mg/dL (1.7-2.9) 10/06/17 05:40 Total Bilirubin 0.60 mg/dL (0.2-1.0) 10/06/17 05:40 AST 34 Units/L (15-37) 10/06/17 05:40 ALT 49 Units/L (12-78) 10/06/17 05:40 Alkaline Phosphatase 234 Units/L (46-116) H 10/06/17 05:40 Total Protein 5.9 g/dL (6.4-8.2) L 10/06/17 05:40 Albumin 2.9 g/dL (3.4-5.0) L 10/06/17 05:40 Globulin 3.0 g/dL (2.5-4.5) 10/06/17 05:40 Albumin/Globulin Ratio 1.0 Ratio (1.1-2.1) L 10/06/17 05:40 Specimen Type Clean catch urine 10/05/17 17:45 Urine Color Yellow (YELLOW) 10/05/17 17:45 Urine Appearance Clear (CLEAR) 10/05/17 17:45 Urine pH 5.0 (5.0 - 8.0) 10/05/17 17:45 Ur Specific [place] 1.015 (1.000-1.030) 10/05/17 17:45 Urine Protein Negative (NEGATIVE) 10/05/17 17:45 Urine Glucose (UA) 4+ (NEGATIVE) 10/05/17 17:45 Urine Ketones Negative (NEGATIVE) 10/05/17 17:45 Urine Occult Blood Negative (NEGATIVE) 10/05/17 17:45 Urine Nitrite Negative (NEGATIVE) 10/05/17 17:45 Urine Bilirubin Negative (NEGATIVE) 10/05/17 17:45 Urine Acetone Negative (NEGATIVE) 10/05/17 17:45 Urine Urobilinogen Normal (NORMAL) 10/05/17 17:45 Ur Leukocyte Esterase Negative (NEGATIVE) 10/05/17 17:45 Acetone, Semi-Quant Negative (NEGATIVE) 10/05/17 18:00 - Plan (1) Acute hyperglycemia Status: Acute Plan: AM LABS CBC CMP URINE AND SERUM ACETONE COLLECTED ON ADMISSION. ABG ON ADMISSION, CXR. BP MONITORING, GENTLE HYDRATION, CARIDAC MONITORING. HOLDING HOME BLOOD PRESSURE MEDICAITON. PPI, NAUSEA CONTROL. OBTAIN LAST CT HEAD AND CAROTID REPORT. UA, FSBS, SSI, RESUME LEVEMIR (2) Diabetes mellitus Status: Chronic (3) Hypertension Status: Chronic Qualifiers: (4) Hyperlipidemia Status: Chronic (5) GERD (gastroesophageal reflux disease) Status: Chronic (6) Sleep apnea Status: Chronic (7) Degenerative disc disease Status: Chronic
[2017-10-06 14:04] LABS: FREE T4 (FREE THYROXINE) 1.03 ng/dL (0.76-1.46)
[2017-10-06 14:24] LABS: TSH (3RD GENERATION) 0.619 uIU/mL (0.358-3.74)
[2017-10-06] MEDS ORDERED: TYLENOL 325 MG TAB PO PRN (17:27)
[2017-10-06] MEDS ORDERED: SNACK - Diabetic Appropriate PO SCH (20:00)
[2017-10-06] MEDS: PRAVACHOL PO SCH (20:57)
[2017-10-06] MEDS: SINGULAIR TAB 10 MG PO SCH (20:57)
[2017-10-06] MEDS: COLACE CAP 100 MG PO SCH (20:57)
[2017-10-06] MEDS: SNACK - Diabetic Appropriate PO SCH (20:58)
[2017-10-06] MEDS ORDERED: LEVEMIR SC SCH (21:00)
[2017-10-07] MEDS: NORCO 10/325 TAB PO PRN ×2 (00:01→17:55)
[2017-10-07 06:07] LABS: EOSINOPHILS # (AUTO) 0.1 x10^3/uL (0.0-0.2); EOSINOPHILS % (AUTO) 1.8 % (0.9-2.9); HEMATOCRIT 40.2 % (42.0-54.0); HEMOGLOBIN 14.3 g/dL (13.5-18.0); LYMPHOCYTES # (AUTO) 1.8 X10^3/uL (1.3-2.9); LYMPHOCYTES % (AUTO) 40.8 % (21.0-51.0); MEAN CORPUSCULAR HEMOGLOBIN 30.6 pg (27.0-34.0); MEAN CORPUSCULAR HGB CONC 35.5 g/dL (33.0-35.0); MEAN CORPUSCULAR VOLUME 86.3 fL (80.0-100.0); MEAN PLATELET VOLUME 9.1 fL (7.4-11.0); MONOCYTES # (AUTO) 0.3 x10^3/uL (0.3-0.8); MONOCYTES % (AUTO) 6.5 % (0.0-13.0); NEUTROPHILS # (AUTO) 2.2 x10^3/uL (2.2-4.8); NEUTROPHILS % (AUTO) 49.9 % (42.0-75.0); PLATELET COUNT 106 X10^3/uL (150.0-450.0); RED BLOOD COUNT 4.65 X10^6/uL (4.7-6.0); RED CELL DISTRIBUTION WIDTH 13.4 % (11.6-16.5); WHITE BLOOD COUNT 4.5 X10^3/uL (3.6-10.0)
[2017-10-07] MEDS: HumuLIN R SUBCUT PRN ×5 (06:10→20:33)
[2017-10-07 06:18] LABS: ALANINE AMINOTRANSFERASE 43 Units/L (12-78); ALBUMIN 2.8 g/dL (3.4-5.0); ALKALINE PHOSPHATASE 209 Units/L (46-116); ASPARTATE AMINO TRANSFERASE 29 Units/L (15-37); BLOOD UREA NITROGEN 12 mg/dL (7-18); CALCIUM 8.2 mg/dL (8.5-10.1); CARBON DIOXIDE 27.6 mmol/L (21-32); CHLORIDE 105 mmol/L (98-107); COR CA(FOR HYPOALB) 9.2 mg/dL (8.5-10.1); COR NA(FOR HYPERGLY) 142 mmol/L (136-145); CREATININE 1.06 mg/dL (0.70-1.30); SODIUM 137 mmol/L (136-145); TOTAL PROTEIN 5.7 g/dL (6.4-8.2); eGFR NON BLACK RACES > 60 (>60)
[2017-10-07] MEDS: CELEXA PO SCH (08:05)
[2017-10-07] MEDS: PROTONIX INJ 40 MG VIAL IVP SCH (08:05)
[2017-10-07] MEDS: REQUIP PO SCH ×2 (08:05→20:32)
[2017-10-07] MEDS: AMARYL TAB 4 MG PO SCH ×2 (08:05→16:57)
--- NOTE | 2017-10-07 11:53 | VAS ---
HISTORY: Concern for carotid artery stenosis. Dizziness. Technique: Multiple paredes scale and color flow Doppler images of the right and left carotid arterial s ystem were obtained. The vertebral arterial system was evaluated as well. Findings: Nonocclusive color flow Doppler is seen throughout the right and left carotid arterial system. No hem odynamically significant carotid arterial stenosis is seen based on velocity criteria. There is mild atherosclerosis and early plaque formation of the bilateral carotid bulbs and proximal ICAs with asso ciated intimal thickening but without evidence for high-grade stenosis (>70%) or occlusion of the car otid arteries. The right and left vertebral artery demonstrate antegrade flow. IMPRESSION: Mild atherosclerosis and early plaque formation of the bilateral carotid bulbs and proximal ICAs with minor associated carotid intimal thickening but without evidence for high-grade stenosis or occlusio n of the carotid arteries, based on Doppler velocity criteria. Appropriate, antegrade, vertebral arterial flow. Peak right ICA velocity: 78 centimeter/seconds. Peak right CCA velocity: 71 centimeter/seconds. Peak left ICA velocity: 81 centimeter/seconds. Peak left CCA velocity: 71 centimeter/seconds. Right ICA to CCA ratio: 1.1. Left ICA to CCA ratio: 1.2. Reported By:
--- NOTE | 2017-10-07 17:59 | PCM.PROG ---
Progress Note - Progress Note for Day of Date of Exam: 10/07/17 - Subjective Subjective: 47 WM ADMITTED ONE DAY AGO WITH CO ELEVATED BLOOD SUGAR. PT HAD NEGATIVE URINE AND SERUM ACETONE. PT CURRENTLY ON IV HYDRATION WITH NS AND SSI THERAPY. PT DOES REPORT NON COMPLIANCE WITH DIET, HOWEVER NOTHING NEW IN ROUTINE TO CAUSE SUDDEN INCREASED IN BS. PT EXPERIENCED HYPOTENSION DURING THIS NIGHT, CURRENTLY STABLE AND DENIES BEING SYMPTOMATIC. PT TOOK NORVASC ON WEDNESDAY MORNING NO ANTIHYPERTENSIVE MEDS LAST PM. HOLDING ANTIHYPERTENSIVE, ENCOURAGED INCREASED ORAL HYDRATION. BS CONTINUES TO BE >200. PT CO VISION CONTINUES WITH BLURRED, COMES AND GOES. CAROTID ARTERY US ORDERED, INCREASE GLYBURIDE TO BID, CONTINUE SSI, AND LEVEMIR. - Past Medical Family Social History Past Med/Fam/Surg Hx: No changes since H&P Allergies: Allergies No Known Drug Allergies Allergy (Verified 08/01/17 16:52) - Review of Systems ROS: No change since H&P - Vital Signs and I&O's Vital Signs: Temperature 97.9 F Pulse Rate [Apical] 64 Respiratory Rate 21 Blood Pressure [Right Arm] 122/61 Blood Pressure [Left Arm] 113/74 Blood Pressure [Standing] 106/87 Blood Pressure [Sitting] 108/76 Blood Pressure [Lying] 114/73 Blood Pressure 122/74 O2 Sat by Pulse Oximetry 100 Intake and Output: Intake & Output 10/05/17 10/06/17 10/07/17 10/08/17 11:59 11:59 11:59 11:59 Intake Total 2607 / 2607 2816 / 2816 Output Total 2600 / 2600 Balance 2607 / 2607 216 / 216 - Physical Exam Oriented: Normal Eyes: Blurred Vision (EPISODES OF BLURRED VISION) Ear: Normal Nose: Normal Throat: Normal Respiratory: Diminished Cardiovascular: Normal, Edema (TRACE BILATERAL LE EDEMA) : Normal Auscultation: Bowel Sounds: Normal Tenderness: Normal Skin: Decreased Turgur Musculoskeletal: Back:Lumbar Psychiatric: Anxiety Speech Pattern: Clear, Appropriate - Laboratory and Diagnostics Result Diagrams: 10/07/17 05:43 10/07/17 05:43 Labs: Laboratory WBC 4.5 X10^3/uL (3.6-10.0) 10/07/17 05:43 RBC 4.65 X10^6/uL (4.7-6.0) L 10/07/17 05:43 Hgb 14.3 g/dL (13.5-18.0) 10/07/17 05:43 Hct 40.2 % (42.0-54.0) L 10/07/17 05:43 MCV 86.3 fL (80.0-100.0) 10/07/17 05:43 MCH 30.6 pg (27.0-34.0) 10/07/17 05:43 MCHC 35.5 g/dL (33.0-35.0) H 10/07/17 05:43 RDW 13.4 % (11.6-16.5) 10/07/17 05:43 Plt Count 106 X10^3/uL (150.0-450.0) L 10/07/17 05:43 Plt Count Comment Decreased (ADEQUATE) 10/05/17 18:00 MPV 9.1 fL (7.4-11.0) 10/07/17 05:43 Neut % (Auto) 49.9 % (42.0-75.0) 10/07/17 05:43 Lymph % (Auto) 40.8 % (21.0-51.0) 10/07/17 05:43 [place] % (Auto) 6.5 % (0.0-13.0) 10/07/17 05:43 Eos % (Auto) 1.8 % (0.9-2.9) 10/07/17 05:43 Baso % (Auto) 1.0 % (0.2-1.0) 10/07/17 05:43 Neut # (Auto) 2.2 x10^3/uL (2.2-4.8) 10/07/17 05:43 Lymph # (Auto) 1.8 X10^3/uL (1.3-2.9) 10/07/17 05:43 [place] # (Auto) 0.3 x10^3/uL (0.3-0.8) 10/07/17 05:43 Eos # (Auto) 0.1 x10^3/uL (0.0-0.2) 10/07/17 05:43 Baso # (Auto) 0.0 X10^3/uL (0.0-0.1) 10/07/17 05:43 Absolute Nucleated RBC 0.0 /100WBC 10/07/17 05:43 Total Counted 100 10/05/17 18:00 Neutrophils % (Manual) 63 % (39-76) 10/05/17 18:00 Lymphocytes % (Manual) 26 % (13-43) 10/05/17 18:00 Monocytes % (Manual) 7 % (4-9) 10/05/17 18:00 Atypical Lymphocytes 4 10/05/17 18:00 Plt Morphology Comment Normal (NORMAL) 10/05/17 18:00 RBC Morphology Normal (NORMAL) 10/05/17 18:00 Sample Site Rr 10/05/17 18:00 ABG pH 7.450 (7.35-7.45) 10/05/17 18:00 ABG pCO2 44.0 mmHg (35.0-45.0) 10/05/17 18:00 ABG pO2 79.0 mmHg (80.0-100.0) L 10/05/17 18:00 ABG HCO3 30.6 mmol/L (22-26) H* 10/05/17 18:00 ABG O2 Saturation 96.0 % (90-100) 10/05/17 18:00 ABG Base Excess 5.8 mmol/L (-2.0-2.0) H 10/05/17 18:00 [place] Test Pos 10/05/17 18:00 A-a Gradient 16.0 mmHg 10/05/17 18:00 FiO2 21.000 10/05/17 18:00 Blood Gas Comments Pt franco well. cdn 10/05/17 18:00 Sodium 137 mmol/L (136-145) 10/07/17 05:43 Corrected Sodium 142 mmol/L (136-145) 10/07/17 05:43 Potassium 4.2 mmol/L (3.5-5.1) 10/07/17 05:43 Chloride 105 mmol/L (98-107) 10/07/17 05:43 Carbon Dioxide 27.6 mmol/L (21-32) 10/07/17 05:43 BUN 12 mg/dL (7-18) 10/07/17 05:43 Creatinine 1.06 mg/dL (0.70-1.30) 10/07/17 05:43 Est GFR (MDRD) Af Amer > 60 (>60) 10/07/17 05:43 Est GFR (MDRD) Non-Af > 60 (>60) 10/07/17 05:43 Glucose 305 mg/dL (65-99) H 10/07/17 05:43 POC Glucose (mg/dL) 271 mg/dL (65-99) H 10/07/17 16:35 Hemoglobin A1c 10.8 % 10/07/17 14:19 Calcium 8.2 mg/dL (8.5-10.1) L 10/07/17 05:43 Corrected Calcium 9.2 mg/dL (8.5-10.1) 10/07/17 05:43 Magnesium 1.7 mg/dL (1.7-2.9) 10/06/17 05:40 Total Bilirubin 0.40 mg/dL (0.2-1.0) 10/07/17 05:43 AST 29 Units/L (15-37) 10/07/17 05:43 ALT 43 Units/L (12-78) 10/07/17 05:43 Alkaline Phosphatase 209 Units/L (46-116) H 10/07/17 05:43 Total Protein 5.7 g/dL (6.4-8.2) L 10/07/17 05:43 Albumin 2.8 g/dL (3.4-5.0) L 10/07/17 05:43 Globulin 2.9 g/dL (2.5-4.5) 10/07/17 05:43 Albumin/Globulin Ratio 1.0 Ratio (1.1-2.1) L 10/07/17 05:43 Free T4 1.03 ng/dL (0.76-1.46) 10/06/17 05:40 TSH 3rd Generation 0.619 uIU/mL (0.358-3.74) 10/06/17 05:40 Specimen Type Clean catch urine 10/05/17 17:45 Urine Color Yellow (YELLOW) 10/05/17 17:45 Urine Appearance Clear (CLEAR) 10/05/17 17:45 Urine pH 5.0 (5.0 - 8.0) 10/05/17 17:45 Ur Specific [place] 1.015 (1.000-1.030) 10/05/17 17:45 Urine Protein Negative (NEGATIVE) 10/05/17 17:45 Urine Glucose (UA) 4+ (NEGATIVE) 10/05/17 17:45 Urine Ketones Negative (NEGATIVE) 10/05/17 17:45 Urine Occult Blood Negative (NEGATIVE) 10/05/17 17:45 Urine Nitrite Negative (NEGATIVE) 10/05/17 17:45 Urine Bilirubin Negative (NEGATIVE) 10/05/17 17:45 Urine Acetone Negative (NEGATIVE) 10/05/17 17:45 Urine Urobilinogen Normal (NORMAL) 10/05/17 17:45 Ur Leukocyte Esterase Negative (NEGATIVE) 10/05/17 17:45 Acetone, Semi-Quant Negative (NEGATIVE) 10/05/17 18:00 - Plan (1) Acute hyperglycemia Status: Acute Plan: AM LABS CBC CMP URINE AND SERUM ACETONE COLLECTED ON ADMISSION NEGATIVE. ABG ON ADMISSION, CXR. BP MONITORING, GENTLE HYDRATION, CARIDAC MONITORING. HOLDING HOME BLOOD PRESSURE MEDICAITON. PPI, NAUSEA CONTROL. CAROTID ARTERY US THIS AM. UA, FSBS, SSI, RESUME LEVEMIR, GLYBURIDE BID (2) Diabetes mellitus Status: Chronic (3) Hypertension Status: Chronic Qualifiers: (4) Hyperlipidemia Status: Chronic (5) GERD (gastroesophageal reflux disease) Status: Chronic (6) Sleep apnea Status: Chronic (7) Degenerative disc disease Status: Chronic
[2017-10-07] MEDS: NS 1000 ML 1,000 ML IV SCH (19:50)
[2017-10-07] MEDS: SNACK - Diabetic Appropriate PO SCH (19:58)
[2017-10-07] MEDS: COLACE CAP 100 MG PO SCH (20:21)
[2017-10-07] MEDS: SINGULAIR TAB 10 MG PO SCH (20:32)
[2017-10-07] MEDS: PRAVACHOL PO SCH (20:32)
[2017-10-07] MEDS ORDERED: LEVEMIR SC SCH (21:00)
[2017-10-08] MEDS: NS 1000 ML 1,000 ML IV SCH (04:04)
[2017-10-08 05:32] LABS: BASOPHILS # (AUTO) 0.1 X10^3/uL (0.0-0.1); BASOPHILS % (AUTO) 1.8 % (0.2-1.0); HEMATOCRIT 42.8 % (42.0-54.0); HEMOGLOBIN 15.1 g/dL (13.5-18.0); LYMPHOCYTES # (AUTO) 1.7 X10^3/uL (1.3-2.9); LYMPHOCYTES % (AUTO) 35.5 % (21.0-51.0); MEAN CORPUSCULAR HEMOGLOBIN 30.6 pg (27.0-34.0); MEAN CORPUSCULAR HGB CONC 35.3 g/dL (33.0-35.0); MEAN CORPUSCULAR VOLUME 86.7 fL (80.0-100.0); MEAN PLATELET VOLUME 9.1 fL (7.4-11.0); MONOCYTES # (AUTO) 0.3 x10^3/uL (0.3-0.8); MONOCYTES % (AUTO) 6.7 % (0.0-13.0); NEUTROPHILS # (AUTO) 2.6 x10^3/uL (2.2-4.8); PLATELET COUNT 109 X10^3/uL (150.0-450.0); RED BLOOD COUNT 4.93 X10^6/uL (4.7-6.0); RED CELL DISTRIBUTION WIDTH 13.9 % (11.6-16.5); WHITE BLOOD COUNT 4.8 X10^3/uL (3.6-10.0)
[2017-10-08 05:44] LABS: ALANINE AMINOTRANSFERASE 42 Units/L (12-78); ALKALINE PHOSPHATASE 204 Units/L (46-116); ASPARTATE AMINO TRANSFERASE 32 Units/L (15-37); BLOOD UREA NITROGEN 13 mg/dL (7-18); CALCIUM 8.2 mg/dL (8.5-10.1); CARBON DIOXIDE 28.7 mmol/L (21-32); CHLORIDE 105 mmol/L (98-107); COR NA(FOR HYPERGLY) 144 mmol/L (136-145); SODIUM 140 mmol/L (136-145); TOTAL PROTEIN 6.2 g/dL (6.4-8.2); eGFR NON BLACK RACES > 60 (>60)
[2017-10-08] MEDS: HumuLIN R SUBCUT PRN ×2 (05:49→11:46)
[2017-10-08 06:03] LABS: PLATELET MORPHOLOGY COMMENT NORMAL (NORMAL)
[2017-10-08] MEDS: NORCO 10/325 TAB PO PRN (07:44)
[2017-10-08] MEDS: AMARYL TAB 4 MG PO SCH (07:44)
[2017-10-08] MEDS: REQUIP PO SCH (08:37)
[2017-10-08] MEDS: CELEXA PO SCH (08:38)
[2017-10-08] MEDS: PROTONIX INJ 40 MG VIAL IVP SCH (08:39)
[2017-10-08 14:17] VITALS: BP 105/71
[2017-10-18 07:21] LABS: HOURS COLLECTED 24; TOTAL URINE VOLUME 2600
[2017-10-18 07:22] LABS: CORTISOL UR FREE 24 HOURS 17.4; CORTISOL UR FREE UG/G 13.67
[2017-10-18 07:23] LABS: CREATININE UR MG/DAY 1274; CREATININE UR MG/DL 49
== END 2017-10-08 14:45 | disposition home or self-care (01) ==
LOC: MED/SURG
PROVIDERS: ADMIT Internal Medicine; ATTEND Internal Medicine
DX: Z79.4 Long term (current) use of insulin; E78.2 Mixed hyperlipidemia; R60.0 Localized edema; K21.9 Gastro-esophageal reflux disease without esophagitis; R42 Dizziness and giddiness; H53.8 Other visual disturbances; I10 Essential (primary) hypertension; G47.33 Obstructive sleep apnea (adult) (pediatric); E87.1 Hypo-osmolality and hyponatremia; E11.65 Type 2 diabetes mellitus with hyperglycemia; E86.0 Dehydration; R94.31 Abnormal electrocardiogram [ECG] [EKG]; J44.9 Chronic obstructive pulmonary disease, unspecified
CPT/HCPCS: 36415; 36600; 71010; 71045; 80053; 81003; 82009; 82530; 82533; 82803; 83036; 83735; 84439; 84443; 85025; 93005; 93010; 93880; A4222; C9113; G0378; J1815; J3490; J7030

== ENCOUNTER 2018-04-19 12:31 | Observation (INO) ==
--- NOTE | 2018-04-19 13:59 | DR.H&P ---
H&P - History & Physical for Day of: H&P Date: 04/19/18 - Chief Complaint Chief Complaint: BLOOD SUGAR RUNNING HIGH - History of Present Illness History of Present Illness: 47 WM DIRECT ADMIT FROM DR SANTANA OFFICE WITH CO BLOOD SUGAR RUNNING HIGH, OVER 500. PT STATES HE HAS FELT WEAK AND INCREASED LEVEMIR TO 40MG BID AND TAKING SSI WITH CONTINUED ELEVATED BS LEVELS. BS IN OFFICE 475 WITH CO WEAKNESS AND PAIN OVER "KIDNEY" MID BACK AREA. PT HAS PMH OF TYPE 2 DM, OA. PT ADMITTED FOR TREATMENT OF ACUTE HYPERGLYCEMIA, WEAKNESS. - Past Medical History Past Medical History: Hypertension, Diabetes, Anemia, Arthritis, Gout, Sleep Apnea - Past Surgical History Surgical History: Cholecystectomy, Ortho Surgery - Family History Family Medical History: Diabetes Mellitus, Cancer, [place], Hypertension - Social History Does patient currently use any type of tobacco product: No Have you used tobacco products in the last 12 months: No Type of Tobacco Use: Smokeless Does any household member use tobacco: No Alcohol Use: None Drug Use: None - Medications Home Medications: No Known Drug Allergies Allergy (Verified 08/01/17 16:52) - Review of Systems Constitutional: Weakness Eyes: No Symptoms Reported ENT: No Symptoms Reported Respiratory: No Symptoms Reported Gastrointestinal: No Symptoms Reported Genitourinary: No Symptoms Reported Musculoskeletal: Back Pain Skin: No Symptoms Reported Neurological: Weakness - Physical Exam Vital Signs: Blood Pressure [Right Arm] 105/71 Blood Pressure [Left Arm] 99/66 Blood Pressure [Standing] 106/87 Blood Pressure [Sitting] 108/76 Blood Pressure [Lying] 114/73 Blood Pressure 105/71 Oriented: Normal Eyes: Normal Nose: Normal Throat: Normal Respiratory: Clear Throughout Cardiovascular: Normal Auscultation: Bowel Sounds: Bruit Palpation: Normal Tenderness: Normal Skin: Normal Musculoskeletal: Back:Thoracic, Back:Lumbar Psychiatric: Normal Mood Description: Calm Speech Pattern: Clear, Appropriate - Assessment/Plan (1) Acute hyperglycemia Status: Acute Plan: ADMIT, SQ LEVEMIR, SSI. IV HYDRATION, ADMISSION LABS. UA AND URINE ACETONE, PRN RESP CONSULT. ORAL HYDRATION, BP AND BS CONTROL. VERIFY HOME MEDICATION+- (2) Degenerative disc disease Status: Chronic (3) Diabetes mellitus Status: Chronic (4) GERD (gastroesophageal reflux disease) Status: Chronic (5) Gout Status: Chronic - Allergies Allergies/Adverse Reactions: Allergies Allergy/AdvReac Type Severity Reaction Status Date / Time No Known Drug Allergies Allergy Verified 08/01/17 16:52
[2018-04-19] MEDS ORDERED: LEVEMIR SC SCH (14:00)
[2018-04-19 14:21] LABS: BASOPHILS % (AUTO) 0.8 % (0.2-1.0); EOSINOPHILS # (AUTO) 0.1 x10^3/uL (0.0-0.2); EOSINOPHILS % (AUTO) 1.3 % (0.9-2.9); HEMATOCRIT 49.4 % (42.0-54.0); HEMOGLOBIN 16.8 g/dL (13.5-18.0); LYMPHOCYTES # (AUTO) 2.1 X10^3/uL (1.3-2.9); MEAN CORPUSCULAR HEMOGLOBIN 29.1 pg (27.0-34.0); MEAN CORPUSCULAR VOLUME 85.5 fL (80.0-100.0); MEAN PLATELET VOLUME 8.7 fL (7.4-11.0); MONOCYTES # (AUTO) 0.4 x10^3/uL (0.3-0.8); MONOCYTES % (AUTO) 7.2 % (0.0-13.0); NEUTROPHILS # (AUTO) 3.2 x10^3/uL (2.2-4.8); NEUTROPHILS % (AUTO) 54.7 % (42.0-75.0); PLATELET COUNT 156 X10^3/uL (150.0-450.0); RED BLOOD COUNT 5.77 X10^6/uL (4.7-6.0); RED CELL DISTRIBUTION WIDTH 14.5 % (11.6-16.5); WHITE BLOOD COUNT 5.8 X10^3/uL (3.6-10.0)
[2018-04-19 14:37] LABS: ALANINE AMINOTRANSFERASE 48 Units/L (12-78); ALBUMIN 3.5 g/dL (3.4-5.0); ALKALINE PHOSPHATASE 204 Units/L (46-116); ASPARTATE AMINO TRANSFERASE 32 Units/L (15-37); BLOOD UREA NITROGEN 16 mg/dL (7-18); CALCIUM 8.4 mg/dL (8.5-10.1); CARBON DIOXIDE 24.3 mmol/L (21-32); CHLORIDE 104 mmol/L (98-107); COR NA(FOR HYPERGLY) 146 mmol/L (136-145); CREATININE 1.47 mg/dL (0.70-1.30); MAGNESIUM 1.9 mg/dL (1.7-2.9); SODIUM 138 mmol/L (136-145); TOTAL PROTEIN 6.7 g/dL (6.4-8.2); eGFR NON BLACK RACES 54 (>60)
--- NOTE | 2018-04-19 14:56 | RAD ---
HISTORY: Weakness history COPD Study: Two-view chest Comparison: AP chest 10/05/2017 Technique: PA and lateral chest Findings: There are sternotomy wires from prior surgery. The heart size configuration are normal the airway vascularity are normal. Two surgical anchors are seen at the right humeral head from prior rotator cuff surgery and surgical clips are seen over the right upper axilla. There are no acute infiltrates or effusions. Postsurgical chest status post sternotomy and rotator cuff surgery. No acute cardiopulmonary abnormalities. IMPRESSION: 1. Reported By:
[2018-04-19] MEDS: NS 1000 ML 1,000 ML IV SCH (15:45)
[2018-04-19 15:53] VITALS: BMI 35.3
[2018-04-19] MEDS: HumuLIN R SUBCUT PRN ×2 (17:15→20:58)
[2018-04-19 18:31] LABS: BILIRUBIN,URINE NEGATIVE (NEGATIVE); BLOOD/HEMOGLOBIN,URINE 2+ (NEGATIVE); GLUCOSE, URINE 4+ (NEGATIVE); KETONES,URINE NEGATIVE (NEGATIVE); LEUKOCYTE ESTERASE ,URINE NEGATIVE (NEGATIVE); NITRITES,URINE NEGATIVE (NEGATIVE); PROTEIN,URINE NEGATIVE (NEGATIVE); UROBILINOGEN,URINE NORMAL (NORMAL)
[2018-04-19 18:39] LABS: APPEARANCE,URINE CLEAR (CLEAR); BACTERIA,URINE TRACE /HPF (NEGATIVE); COLOR,URINE YELLOW (YELLOW); SQUAMOUS EPITHELIAL CELL,UR RARE /HPF (NEGATIVE)
[2018-04-19] MEDS: SNACK - Diabetic Appropriate PO SCH (20:56)
[2018-04-19] MEDS: LEVEMIR SC SCH (20:57)
[2018-04-20] MEDS: NS 1000 ML 1,000 ML IV SCH ×3 (03:59→21:46)
[2018-04-20] MEDS: HumuLIN R SUBCUT PRN ×4 (05:38→20:47)
[2018-04-20 05:41] LABS: BASOPHILS % (AUTO) 0.4 % (0.2-1.0); EOSINOPHILS # (AUTO) 0.1 x10^3/uL (0.0-0.2); EOSINOPHILS % (AUTO) 2.3 % (0.9-2.9); HEMOGLOBIN 15.8 g/dL (13.5-18.0); LYMPHOCYTES # (AUTO) 1.9 X10^3/uL (1.3-2.9); LYMPHOCYTES % (AUTO) 40.2 % (21.0-51.0); MEAN CORPUSCULAR HEMOGLOBIN 29.4 pg (27.0-34.0); MEAN CORPUSCULAR HGB CONC 34.3 g/dL (33.0-35.0); MEAN CORPUSCULAR VOLUME 85.6 fL (80.0-100.0); MEAN PLATELET VOLUME 9.2 fL (7.4-11.0); MONOCYTES # (AUTO) 0.4 x10^3/uL (0.3-0.8); MONOCYTES % (AUTO) 7.8 % (0.0-13.0); NEUTROPHILS # (AUTO) 2.4 x10^3/uL (2.2-4.8); NEUTROPHILS % (AUTO) 49.3 % (42.0-75.0); PLATELET COUNT 122 X10^3/uL (150.0-450.0); RED BLOOD COUNT 5.38 X10^6/uL (4.7-6.0); RED CELL DISTRIBUTION WIDTH 14.4 % (11.6-16.5); WHITE BLOOD COUNT 4.8 X10^3/uL (3.6-10.0)
[2018-04-20 05:57] LABS: ALANINE AMINOTRANSFERASE 44 Units/L (12-78); ALBUMIN 3.1 g/dL (3.4-5.0); ALKALINE PHOSPHATASE 180 Units/L (46-116); ASPARTATE AMINO TRANSFERASE 29 Units/L (15-37); BLOOD UREA NITROGEN 13 mg/dL (7-18); CALCIUM 8.2 mg/dL (8.5-10.1); CARBON DIOXIDE 24.9 mmol/L (21-32); CHLORIDE 107 mmol/L (98-107); COR CA(FOR HYPOALB) 8.9 mg/dL (8.5-10.1); COR NA(FOR HYPERGLY) 143 mmol/L (136-145); CREATININE 1.12 mg/dL (0.70-1.30); SODIUM 140 mmol/L (136-145); TOTAL PROTEIN 6.1 g/dL (6.4-8.2); eGFR NON BLACK RACES > 60 (>60)
[2018-04-20] MEDS ORDERED: K-RIDER 10 MEQ/NS 100 ML 10 MEQ/100 ML BAG IV PRN (06:08)
[2018-04-20] MEDS ORDERED: KLOR-CON PO PRN (06:08)
[2018-04-20] MEDS ORDERED: MICRO K EXTEN CAP 10 MEQ PO PRN (06:08)
[2018-04-20] MEDS ORDERED: POTASSIUM CHLORIDE LIQ 20 MEQ UDC PO PRN (06:08)
[2018-04-20] MEDS ORDERED: K-DUR TAB 20 MEQ PO PRN (06:08)
[2018-04-20] MEDS ORDERED: POTASSIUM CHL 60 MEQ/NS 0.45% 500 ML IV PRN (06:08)
[2018-04-20] MEDS ORDERED: POTASSIUM CHL 40 MEQ/NS 0.45% 500 ML IV PRN (06:08)
[2018-04-20] MEDS: LEVEMIR SC SCH ×2 (08:24→20:48)
[2018-04-20] MEDS: GLUCOPHAGE XR PO SCH (09:56)
--- NOTE | 2018-04-20 17:39 | PCM.PROG ---
Progress Note - Progress Note for Day of Date of Exam: 04/20/18 - Past Medical Family Social History Past Med/Fam/Surg Hx: No changes since H&P Allergies: Allergies No Known Drug Allergies Allergy (Verified 08/01/17 16:52) - Review of Systems ROS: No change since H&P - Vital Signs and I&O's Vital Signs: Temperature 98.3 F Pulse Rate [Left Brachial] 65 Respiratory Rate 20 Blood Pressure [Right Arm] 116/61 Blood Pressure [Left Arm] 150/82 Blood Pressure [Standing] 106/87 Blood Pressure [Sitting] 108/76 Blood Pressure [Lying] 114/73 Blood Pressure 105/71 O2 Sat by Pulse Oximetry 98 Intake and Output: Intake & Output 04/18/18 04/19/18 04/20/18 04/21/18 11:59 11:59 11:59 11:59 Intake Total 1140 / 1140 2600 / 2600 Output Total 6 / 6 Balance 1140 / 1140 2594 / 2594 - Physical Exam Oriented: Normal Eyes: Normal Ear: Normal Nose: Normal Throat: Normal Respiratory: Diminished Cardiovascular: Normal Auscultation: Bowel Sounds: Bruit Tenderness: Normal Skin: Normal Musculoskeletal: Back:Thoracic, Back:Lumbar Psychiatric: Normal Mood Description: Calm Speech Pattern: Clear, Appropriate - Laboratory and Diagnostics Result Diagrams: 04/20/18 04:15 04/20/18 04:15 Labs: Laboratory WBC 4.8 X10^3/uL (3.6-10.0) 04/20/18 04:15 RBC 5.38 X10^6/uL (4.7-6.0) 04/20/18 04:15 Hgb 15.8 g/dL (13.5-18.0) 04/20/18 04:15 Hct 46.0 % (42.0-54.0) 04/20/18 04:15 MCV 85.6 fL (80.0-100.0) 04/20/18 04:15 MCH 29.4 pg (27.0-34.0) 04/20/18 04:15 MCHC 34.3 g/dL (33.0-35.0) 04/20/18 04:15 RDW 14.4 % (11.6-16.5) 04/20/18 04:15 Plt Count 122 X10^3/uL (150.0-450.0) L 04/20/18 04:15 MPV 9.2 fL (7.4-11.0) 04/20/18 04:15 Neut % (Auto) 49.3 % (42.0-75.0) 04/20/18 04:15 Lymph % (Auto) 40.2 % (21.0-51.0) 04/20/18 04:15 [place] % (Auto) 7.8 % (0.0-13.0) 04/20/18 04:15 Eos % (Auto) 2.3 % (0.9-2.9) 04/20/18 04:15 Baso % (Auto) 0.4 % (0.2-1.0) 04/20/18 04:15 Neut # (Auto) 2.4 x10^3/uL (2.2-4.8) 04/20/18 04:15 Lymph # (Auto) 1.9 X10^3/uL (1.3-2.9) 04/20/18 04:15 [place] # (Auto) 0.4 x10^3/uL (0.3-0.8) 04/20/18 04:15 Eos # (Auto) 0.1 x10^3/uL (0.0-0.2) 04/20/18 04:15 Baso # (Auto) 0.0 X10^3/uL (0.0-0.1) 04/20/18 04:15 Absolute Nucleated RBC 0.1 /100WBC 04/20/18 04:15 Sodium 140 mmol/L (136-145) 04/20/18 04:15 Corrected Sodium 143 mmol/L (136-145) 04/20/18 04:15 Potassium 3.5 mmol/L (3.5-5.1) 04/20/18 04:15 Chloride 107 mmol/L (98-107) 04/20/18 04:15 Carbon Dioxide 24.9 mmol/L (21-32) 04/20/18 04:15 BUN 13 mg/dL (7-18) 04/20/18 04:15 Creatinine 1.12 mg/dL (0.70-1.30) 04/20/18 04:15 Est GFR (MDRD) Af Amer > 60 (>60) 04/20/18 04:15 Est GFR (MDRD) Non-Af > 60 (>60) 04/20/18 04:15 Glucose 232 mg/dL (65-99) H 04/20/18 04:15 POC Glucose (mg/dL) 228 mg/dL (65-99) H 04/20/18 16:57 Hemoglobin A1c 9.8 % 04/19/18 14:17 Calcium 8.2 mg/dL (8.5-10.1) L 04/20/18 04:15 Corrected Calcium 8.9 mg/dL (8.5-10.1) 04/20/18 04:15 Magnesium 1.9 mg/dL (1.7-2.9) 04/19/18 14:17 Total Bilirubin 0.50 mg/dL (0.2-1.0) 04/20/18 04:15 AST 29 Units/L (15-37) 04/20/18 04:15 ALT 44 Units/L (12-78) 04/20/18 04:15 Alkaline Phosphatase 180 Units/L (46-116) H 04/20/18 04:15 Total Protein 6.1 g/dL (6.4-8.2) L 04/20/18 04:15 Albumin 3.1 g/dL (3.4-5.0) L 04/20/18 04:15 Globulin 3.0 g/dL (2.5-4.5) 04/20/18 04:15 Albumin/Globulin Ratio 1.0 Ratio (1.1-2.1) L 04/20/18 04:15 Specimen Type Clean catch urine 04/19/18 16:20 Urine Color Yellow (YELLOW) 04/19/18 16:20 Urine Appearance Clear (CLEAR) 04/19/18 16:20 Urine pH 5.0 (5.0 - 8.0) 04/19/18 16:20 Ur Specific [place] 1.025 (1.000-1.030) 04/19/18 16:20 Urine Protein Negative (NEGATIVE) 04/19/18 16:20 Urine Glucose (UA) 4+ (NEGATIVE) 04/19/18 16:20 Urine Ketones Negative (NEGATIVE) 04/19/18 16:20 Urine Occult Blood 2+ (NEGATIVE) 04/19/18 16:20 Urine Nitrite Negative (NEGATIVE) 04/19/18 16:20 Urine Bilirubin Negative (NEGATIVE) 04/19/18 16:20 Urine Acetone Negative (NEGATIVE) 04/19/18 16:20 Urine Urobilinogen Normal (NORMAL) 04/19/18 16:20 Ur Leukocyte Esterase Negative (NEGATIVE) 04/19/18 16:20 Urine RBC 5-10 /HPF (NONE SEEN) 04/19/18 16:20 Urine WBC None seen /HPF (NONE SEEN) 04/19/18 16:20 Ur Squamous Epith Cells Rare /HPF (NEGATIVE) 04/19/18 16:20 Urine Bacteria Trace /HPF (NEGATIVE) 04/19/18 16:20 Ur Culture Indicated? No/not indicated 04/19/18 16:20 - Plan (1) Acute hyperglycemia Status: Acute Plan: SQ LEVEMIR, SSI. IV HYDRATION,AM LABS. URINE ACETONE NEGATIVE, PRN RESP CONSULT. ORAL HYDRATION, BP AND BS CONTROL. VERIFY HOME MEDICATION+, METFORMIN PO (2) Degenerative disc disease Status: Chronic (3) Diabetes mellitus Status: Chronic (4) GERD (gastroesophageal reflux disease) Status: Chronic (5) Gout Status: Chronic
[2018-04-20] MEDS: SNACK - Diabetic Appropriate PO SCH (21:45)
[2018-04-21 04:43] LABS: BILIRUBIN,URINE NEGATIVE (NEGATIVE); BLOOD/HEMOGLOBIN,URINE NEGATIVE (NEGATIVE); GLUCOSE, URINE NEGATIVE (NEGATIVE); KETONES,URINE NEGATIVE (NEGATIVE); LEUKOCYTE ESTERASE ,URINE NEGATIVE (NEGATIVE); NITRITES,URINE NEGATIVE (NEGATIVE); PROTEIN,URINE NEGATIVE (NEGATIVE); UROBILINOGEN,URINE NORMAL (NORMAL)
[2018-04-21 04:58] LABS: APPEARANCE,URINE CLEAR (CLEAR); COLOR,URINE YELLOW (YELLOW)
[2018-04-21] MEDS: NS 1000 ML 1,000 ML IV SCH ×2 (05:14→08:00)
[2018-04-21 05:24] LABS: BASOPHILS % (AUTO) 0.5 % (0.2-1.0); EOSINOPHILS # (AUTO) 0.1 x10^3/uL (0.0-0.2); EOSINOPHILS % (AUTO) 1.5 % (0.9-2.9); HEMATOCRIT 48.2 % (42.0-54.0); HEMOGLOBIN 16.6 g/dL (13.5-18.0); LYMPHOCYTES # (AUTO) 1.7 X10^3/uL (1.3-2.9); LYMPHOCYTES % (AUTO) 34.6 % (21.0-51.0); MEAN CORPUSCULAR HEMOGLOBIN 29.4 pg (27.0-34.0); MEAN CORPUSCULAR HGB CONC 34.5 g/dL (33.0-35.0); MEAN CORPUSCULAR VOLUME 85.2 fL (80.0-100.0); MONOCYTES # (AUTO) 0.3 x10^3/uL (0.3-0.8); MONOCYTES % (AUTO) 6.9 % (0.0-13.0); NEUTROPHILS # (AUTO) 2.8 x10^3/uL (2.2-4.8); NEUTROPHILS % (AUTO) 56.5 % (42.0-75.0); PLATELET COUNT 131 X10^3/uL (150.0-450.0); RED BLOOD COUNT 5.65 X10^6/uL (4.7-6.0); RED CELL DISTRIBUTION WIDTH 14.5 % (11.6-16.5); WHITE BLOOD COUNT 4.9 X10^3/uL (3.6-10.0)
[2018-04-21 05:41] LABS: ALANINE AMINOTRANSFERASE 45 Units/L (12-78); ALBUMIN 3.3 g/dL (3.4-5.0); ALKALINE PHOSPHATASE 185 Units/L (46-116); ASPARTATE AMINO TRANSFERASE 29 Units/L (15-37); BLOOD UREA NITROGEN 16 mg/dL (7-18); CALCIUM 8.5 mg/dL (8.5-10.1); CARBON DIOXIDE 26.1 mmol/L (21-32); CHLORIDE 107 mmol/L (98-107); COR CA(FOR HYPOALB) 9.1 mg/dL (8.5-10.1); COR NA(FOR HYPERGLY) 145 mmol/L (136-145); CREATININE 1.28 mg/dL (0.70-1.30); MAGNESIUM 1.7 mg/dL (1.7-2.9); SODIUM 142 mmol/L (136-145); TOTAL PROTEIN 6.2 g/dL (6.4-8.2); eGFR NON BLACK RACES > 60 (>60)
[2018-04-21] MEDS ORDERED: MAGNESIUM SULFATE 1 GRAM/100 mL PREMIX 1 GM/100 ML BAG IV PRN (05:54)
[2018-04-21] MEDS ORDERED: MAGNESIUM SULFATE 1 GRAM/100 mL PREMIX 2 G/200 ML BAG IV SCH (06:00)
[2018-04-21] MEDS: HumuLIN R SUBCUT PRN ×2 (06:11→11:03)
[2018-04-21] MEDS: GLUCOPHAGE XR PO SCH (09:14)
[2018-04-21] MEDS: LEVEMIR SC SCH (09:15)
[2018-04-21 12:46] VITALS: BP 131/92
== END 2018-04-21 12:25 | disposition home or self-care (01) ==
LOC: MED/SURG
PROVIDERS: ADMIT Internal Medicine; ATTEND Internal Medicine
DX: R53.1 Weakness; K21.9 Gastro-esophageal reflux disease without esophagitis; Z79.899 Other long term (current) drug therapy; Z98.890 Other specified postprocedural states; M1A.9XX0 Chronic gout, unspecified, without tophus (tophi); I10 Essential (primary) hypertension; E11.65 Type 2 diabetes mellitus with hyperglycemia; Z79.4 Long term (current) use of insulin
CPT/HCPCS: 36415; 71020; 71046; 80053; 81001; 81003; 82009; 83036; 83735; 85025; A4222; G0378; J1815; J3475; J7030

== ENCOUNTER 2020-04-18 21:11 | Observation (INO) ==
[2020-04-18 21:23] VITALS: BMI 29.7
--- NOTE | 2020-04-18 22:01 | DR.HYPOGLY ---
HPI Time Seen Time Seen by Provider: 04/18/20 22:00 PCP Primary Care Physician: eduardo HPI Comment HPI Comment: PATIENT IS 49YR OLD MALE IN ER WITH AMS, COUGH AND NUMBNESS AROUND MOUTH. GLUCOSE WAS ELEVATED AT HOME, 16 UNITS REGULAR INSLIN SUB CUTANOUS BEFORE COMING. AFTER INSULIN, MENTAL STATUS IMPROVED. PATIENT PATIENT HAD STERIOD SHOTS IN THE SHOULDER WHICH MAY HAVE INCREASE PATIENTS GLUCOVE. DENIES TRAUMA, FEVER, VOMITING OR DIARRHEA. COUGHING. Complaint Chief Complaint Doctors Comments: AMS, COUGH, NUMBNESS AROUND MOUTH WITH ELEVATED GLUCOSE. Chief Complaint:: "PATIENT LAYING ON COUCH AND STARTING HAVING NUMBNESS AND TINGILING AROUND THE MOUTH WITH [place]UGGISH SPEECH PATTERN.. PATIENT'S BGL WAS TO HIGH TO READ AT HOME. PATIENT WAS GIVEN 16 UNITS OF INSULIN BY FAMILY MEMBER AND PATIENT HAS STARTED TO REGAIN SOME SPEECH. COVID-19 Coronavirus risk:travel/contact w/high risk person: No Has patient experienced Coronavirus symptoms: No Nurses notes reviewed Nurses Notes Review: Yes Source History Provided: Patient and Family Member Mode of Arrival Mode of Arrival: Ambulatory Timing Onset of Chief Complaint: 04/18/20 Came on: Suddenly Duration Duration: Constant Duration: Hours Context [place]: denies Confused (SPEECH DISTURBANE) Symptoms: Slurred speech (NUMBNESS AROUND MOUTH.) History of: Diabetes, Insulin use, Hypoglycemic episodes and Hyperglycemic episodes Prehospital care: None Modifying factors Improves: denies Nothing (NONE USE. GLUCOSE HIGH.) Associated signs and symptoms Associated signs and symptoms: denies None (SPEECH SLURRED.) Other History Other history: HISTORY DM. PMH PMH Past Medical History: Yes Past Medical History: Diabetes Past Medical History Comment: AAA Past Surgical History: Yes Surgical History: AAA Repair and Cholecystectomy Past Surgical History Comment: THREE RIGHT KNEE SURGERY RIGHT SHOULDER SURGERY Family History History of Family Medical Conditions: Yes Family Medical History: Diabetes Mellitus, Cancer, [place], Coronary Artery Disease, Heart Failure and Hypertension Social History Does any household member use tobacco: No Alcohol Use: None Do you use any recreational Drugs:: No Lives With: Spouse and Family Lives Where: Home Travel Risk Coronavirus risk:travel/contact w/high risk person: No Has patient experienced Coronavirus symptoms: No Infectious screening In the last 2 months have you had wt loss of >10#?: NO Have you had fever, night sweats or hemotysis?: No Have you traveled outside the country in the last 6 months?: No Isolation: Standard ROS Review of Systems Constitutional: See HPI, Weakness and Fatigue; negative Fever Eyes: See HPI and Blurred Vision ENTM: No Symptoms Reported and See HPI; negative Nose Discharge and Nose Congestion Respiratoy: No Symptoms Reported and See HPI; negative Moist Cough, Short of Breath and Wheezing Cardiovascular: No Symptoms Reported and See HPI; negative Chest Pain, Edema and Palpitations Gastrointestinal/Abdominal: See HPI and Nausea; negative Abdominal Pain, Diarrhea and Vomiting Genitourinary: No Symptoms Reported and See HPI; negative Dysuria, Frequency and Hematuria Neurological: See HPI, Numbness, Paresthesia, Tingling, Weakness and Speech Problem; negative Headache Musculoskeletal: See HPI, Back Pain and Shoulder Integumentary: No Symptoms Reported and See HPI; negative Change in Color, Rash and Juandice Hematologic/Lymphatic: No Symptoms Reported and See HPI; negative Easy Bruising and Swollen Glands Endocrine: See HPI, Increased Thirst and Increased Urine Psychiatric: No Symptoms Reported and See HPI All Other Systems: Reviewed and Negative PE Vital Signs Vitals: Temperature 97.1 F Pulse Rate [Left Radial] 92 Pulse Rate 91 Respiratory Rate 20 Blood Pressure [Right Arm] 152/75 Blood Pressure [Left Arm] 102/75 Blood Pressure [Standing] 106/87 Blood Pressure [Sitting] 108/76 Blood Pressure [Lying] 114/73 Blood Pressure 111/73 O2 Sat by Pulse Oximetry 95 General Limitations: No Limitations General Appearance: Alert and In No Apparent Distress Eyes Eye exam: Normal Appearance, PERRL and EOMI; negative Scleral Icterus and Conjunctival Injection Pupils: Regular, Round: Bilateral and Reactive: Bilateral Sclera/Conjunctival: Normal Inspection: Bilateral ENT ENT Exam: Normal Exam, Normal Oropharynx, Normal External Ear Exam and TM's Normal Bilaterally Nose Exam: Normal Nose Exam Mouth Exam: Normal Inspection; negative Lip Swelling and Tongue Swelling Throat Exam: Normal Inspection; negative Tonsillar Erythema, Tonsillomegaly and Tonsillar Exudate Neck Neck Exam: Normal Inspection and Trachea Midline; negative Tenderness and Lymphadenopathy Chest Chest Inspection: Normal Inspection and Symmetric Chest Wall Rise; negative Tenderness Respiratory Respiratory Exam: Normal Lung Sounds Bilat; negative Accessory Muscle Use, Chest Wall Tenderness and Respiratory Distress Respiratory Exam: Bilateral: Rhonchi and Lower: Rhonchi Cardiovascular Cardiovascular Exam: Regular Rate, Normal Rhythm and Normal Heart Sounds; negative Systolic Murmur and Diastolic Murmur Abdominal Exam Abdominal Exam: Normal Inspection, Normal Bowel Sounds and Soft; negative Tenderness Extremities Extremities Exam: Normal Inspection and Normal Capillary Refill; negative Tenderness, Edema and Calf Tenderness Back Back Exam: Normal Inspection; negative (R) CVA Tenderness and (L) CVA Tenderness Neurologic Neurological Exam: Alert, Oriented X3, CN II-XII Intact and Reflexes Normal; negative Motor Sensory Deficit Speech: Other (slightly slow speech.) Cranial Nerve Exam: EOM Function (II, III, IV, ): Normal, Facial Sensation (V): Normal, Facial Palsy (VII): Normal, Gag reflex (XI): Normal and Tongue Deviation: Normal Motor Strength - LUE: 5/5 Motor Strength - RUE: 5/5 Motor Strength - LLE: 5/5 Motor Strength - RLE: 5/5 Upper Motor Neuron Exam: Babinski Sign: Normal Psychiatric Psychiatric Exam: Normal Affect and Normal Mood Skin Skin Exam: Dry MDM Additional information Additional Information Obtained From: Old Records and Family Differential diagnosis Differential diagnosis: CVA (HYPERGLYCEMIA, DKA, DEHYDRATION, UTI, [place], PNEUMONIA. TIA.) COURSE Treatment Treatment: SEE ORDERS. NS 1LIV BOLUS, INSULIN DRIP. Consultation Consultation Comments: DISCUUSED PATIENT WITH DR. RAMIREZ. HE WILL ADMIT PATIENT. Education/Counseling Education/Counseling: Patient and Family Educated On: Diagnosis ROR Labs Reviewed Laboratory Results Reviewed?: Yes Result Diagrams: 04/19/20 05:05 04/19/20 05:05 Laboratory: WBC 5.6 X10^3/uL (3.6-10.0) 04/18/20 22:15 RBC 5.81 X10^6/uL (4.7-6.0) 04/18/20 22:15 Hgb 16.3 g/dL (13.5-18.0) 04/18/20 22:15 Hct 49.7 % (42.0-54.0) 04/18/20 22:15 MCV 85.6 fL (80.0-100.0) 04/18/20 22:15 MCH 28.1 pg (27.0-34.0) 04/18/20 22:15 MCHC 32.9 g/dL (33.0-35.0) L 04/18/20 22:15 RDW 13.7 % (11.6-16.5) 04/18/20 22:15 Plt Count 151 X10^3/uL (150.0-450.0) 04/18/20 22:15 MPV 9.0 fL (7.4-11.0) 04/18/20 22:15 Neut % (Auto) 82.3 % (42.0-75.0) H 04/18/20 22:15 Lymph % (Auto) 15.4 % (21.0-51.0) L 04/18/20 22:15 [place] % (Auto) 1.5 % (0.0-13.0) 04/18/20 22:15 Eos % (Auto) 0.4 % (0.9-2.9) L 04/18/20 22:15 Baso % (Auto) 0.4 % (0.2-1.0) 04/18/20 22:15 Neut # (Auto) 4.6 x10^3/uL (2.2-4.8) 04/18/20 22:15 Lymph # (Auto) 0.9 X10^3/uL (1.3-2.9) L 04/18/20 22:15 [place] # (Auto) 0.1 x10^3/uL (0.3-0.8) L 04/18/20 22:15 Eos # (Auto) 0.0 x10^3/uL (0.0-0.2) 04/18/20 22:15 Baso # (Auto) 0.0 X10^3/uL (0.0-0.1) 04/18/20 22:15 Absolute Nucleated RBC 0.0 /100WBC 04/18/20 22:15 Sodium 126 mmol/L (136-145) L 04/18/20 22:15 Corrected Sodium 145 mmol/L (136-145) 04/18/20 22:15 Potassium 4.5 mmol/L (3.5-5.1) 04/18/20 22:15 Chloride 93 mmol/L (98-107) L 04/18/20 22:15 Carbon Dioxide 27.0 mmol/L (21-32) 04/18/20 22:15 BUN 13 mg/dL (7-18) 04/18/20 22:15 Creatinine 1.55 mg/dL (0.70-1.30) H 04/18/20 22:15 Est GFR (MDRD) Af Amer > 60 (>60) 04/18/20 22:15 Est GFR (MDRD) Non-Af 50 (>60) L 04/18/20 22:15 Glucose 530 mg/dL (65-99) H* 04/19/20 00:54 POC Glucose (mg/dL) 398 mg/dL (65-99) H 04/19/20 02:06 Calcium 9.2 mg/dL (8.5-10.1) 04/18/20 22:15 Corrected Calcium TNP 04/18/20 22:15 Total Bilirubin 1.10 mg/dL (0.2-1.0) H 04/18/20 22:15 AST 20 Units/L (15-37) 04/18/20 22:15 ALT 43 Units/L (12-78) 04/18/20 22:15 Alkaline Phosphatase 289 Units/L (46-116) H 04/18/20 22:15 Creatine Kinase 159 Units/L (39-308) 04/18/20 22:15 CK-MB (CK-2) 1.6 ng/mL (0-4.0) 04/18/20 22:15 CK/CKMB % Calc 1.0 % (<4) 04/18/20 22:15 Troponin I < 0.02 ng/mL (0-1.5) 04/18/20 22:15 B-Natriuretic Peptide 8.0 pg/mL (0-79) 04/19/20 00:54 Total Protein 7.3 g/dL (6.4-8.2) 04/18/20 22:15 Albumin 4.1 g/dL (3.4-5.0) 04/18/20 22:15 Globulin 3.2 g/dL (2.5-4.5) 04/18/20 22:15 Albumin/Globulin Ratio 1.3 Ratio (1.1-2.1) 04/18/20 22:15 Acetone, Semi-Quant Negative (NEGATIVE) 04/19/20 00:54 SARS CoV-2 RNA Rapid MYAH Negative (NEGATIVE) 04/19/20 01:19 XRAY XRAY Interpreted by: Radiologist (REPORTS NOTED AND DISCUSSED WITH PATIENT.) and Self EKG Rate: 84 [place]: Normal Rhythm: NSR Block: RBBB Hypertrophy: None ST: Normal Opioid Opioid Risk Tool Age (Bert box if 16-45): No History of Preadolescent Sexual Abuse: No Total: 0 Total Score Risk Category: Low Risk Copyright: Zane HAWKINS predicting aberrant behaviors Diagnosis Discharge Problem: Hyperglycemia due to diabetes mellitus, Generalized weakness AMS (altered mental status) Qualifiers: Altered mental status type: transient alteration of awareness Qualified Code(s): R40.4 - Transient alteration of awareness Instructions Instructions: Form - Daily Diabetes Record Type 2 Diabetes Mellitus, Self Care, Adult, [id number] Hyperglycemia Hypertension, [id number] Forms: Excuse From Work or School Precautions for COVID19 Patient Portal Social Distancing
[2020-04-18] MEDS ORDERED: NS 1000 ML 1,000 ML ONE ×2 (22:22→23:52)
[2020-04-18 22:25] LABS: BASOPHILS % (AUTO) 0.4 % (0.2-1.0); EOSINOPHILS % (AUTO) 0.4 % (0.9-2.9); HEMATOCRIT 49.7 % (42.0-54.0); HEMOGLOBIN 16.3 g/dL (13.5-18.0); LYMPHOCYTES # (AUTO) 0.9 X10^3/uL (1.3-2.9); LYMPHOCYTES % (AUTO) 15.4 % (21.0-51.0); MEAN CORPUSCULAR HEMOGLOBIN 28.1 pg (27.0-34.0); MEAN CORPUSCULAR HGB CONC 32.9 g/dL (33.0-35.0); MEAN CORPUSCULAR VOLUME 85.6 fL (80.0-100.0); MONOCYTES # (AUTO) 0.1 x10^3/uL (0.3-0.8); MONOCYTES % (AUTO) 1.5 % (0.0-13.0); NEUTROPHILS # (AUTO) 4.6 x10^3/uL (2.2-4.8); NEUTROPHILS % (AUTO) 82.3 % (42.0-75.0); PLATELET COUNT 151 X10^3/uL (150.0-450.0); RED BLOOD COUNT 5.81 X10^6/uL (4.7-6.0); RED CELL DISTRIBUTION WIDTH 13.7 % (11.6-16.5); WHITE BLOOD COUNT 5.6 X10^3/uL (3.6-10.0)
[2020-04-18] MEDS ORDERED: NS 1000 ML 1,000 ML IV ONE ×2 (22:33→23:56)
[2020-04-18 22:41] LABS: BLOOD UREA NITROGEN 13 mg/dL (7-18); CALCIUM 9.2 mg/dL (8.5-10.1); CHLORIDE 93 mmol/L (98-107); CREATININE 1.55 mg/dL (0.70-1.30); SODIUM 126 mmol/L (136-145); TROPONIN I < 0.02 ng/mL (0-1.5); eGFR NON BLACK RACES 50 (>60)
--- NOTE | 2020-04-18 22:41 | CT ---
EXAM: HEAD CT WITHOUT INTRAVENOUS CONTRASTHISTORY: Numbness and tingling around the mouth. Slurred speech.TECHNIQUE: Spiral axial CT images are obtained through the brain without the administration of intravenous contrast. Sagittal and coronal reformatted images are reconstructed.DOSIMETRY: Total DLP 1222.6 mGycm; CTDI 67.4 mGyCOMPARISON: Head CT dated January 09, 2020.FINDINGS:The centrum semiovale, basal ganglia, cerebellum, and brainstem are grossly unremarkable for a noncontrast CT scan.There is no acute intracranial hemorrhage, discernible acute infarction, mass lesion, midline shift, or hydrocephalus seen. No extra-axial mass or abnormal fluid collection is seen.The calvarium is intact. The partially imaged paranasal sinuses, middle ear cavities, and mastoid air cells are clear.IMPRESSION:1. No skull fracture, intracranial hemorrhage, discernible acute infarction, mass lesions, midline shift, mass effect or hydrocephalus seen.2. Consider followup evaluation with MRI /MRA imaging for further assessment as clinically warranted.3. Overall, no significant interval change seen.Electronically signed by: Nile Cee (Apr 18, 2020 22:39:02)
[2020-04-18 22:45] LABS: ALANINE AMINOTRANSFERASE 43 Units/L (12-78); ALBUMIN 4.1 g/dL (3.4-5.0); ALKALINE PHOSPHATASE 289 Units/L (46-116); ASPARTATE AMINO TRANSFERASE 20 Units/L (15-37); CREATINE KINASE 159 Units/L (39-308); CREATINE KINASE MB 1.6 ng/mL (0-4.0); TOTAL PROTEIN 7.3 g/dL (6.4-8.2)
[2020-04-18 23:04] LABS: COR NA(FOR HYPERGLY) 145 mmol/L (136-145)
[2020-04-19] MEDS ORDERED: MYXREDLIN 100 UNIT/100 ML BAG 100 UNIT/100 ML PLAST..BAG IV ONE (00:05)
[2020-04-19] MEDS ORDERED: HumuLIN R IV ONE (00:11)
[2020-04-19] MEDS ORDERED: HumuLIN R ONE (00:15)
[2020-04-19] MEDS: MYXREDLIN 100 UNIT/100 ML BAG 100 UNIT/100 ML PLAST..BAG IV PRN ×2 (00:30→07:37)
[2020-04-19 01:18] LABS: SERUM ACETONE NEGATIVE (NEGATIVE)
--- NOTE | 2020-04-19 02:05 | RAD ---
STUDY: FRONTAL VIEW CHESTCOMPARISON: 01/19/2020HISTORY: SOBFINDINGS:Status post midline sternotomyNo focal consolidation is seen.The heart size is within normal limits.The mediastinum is unremarkable.There is no evidence of pleural effusion or gross pneumothorax.The trachea is midline.IMPRESSION:1. No focal consolidation is seen.2. The heart size is normal.Electronically signed by: Masood Torres (Apr 19, 2020 02:03:00)
[2020-04-19 03:10] LABS: ABG BASE EXCESS -1.7 mmol/L (-2.0-2.0)
[2020-04-19 03:12] LABS: ABG ALLEN TEST POS
[2020-04-19 06:07] LABS: BASOPHILS % (AUTO) 0.3 % (0.2-1.0); HEMATOCRIT 46.4 % (42.0-54.0); HEMOGLOBIN 16.5 g/dL (13.5-18.0); LYMPHOCYTES # (AUTO) 0.9 X10^3/uL (1.3-2.9); LYMPHOCYTES % (AUTO) 11.4 % (21.0-51.0); MEAN CORPUSCULAR HEMOGLOBIN 28.9 pg (27.0-34.0); MEAN CORPUSCULAR HGB CONC 35.6 g/dL (33.0-35.0); MEAN CORPUSCULAR VOLUME 81.2 fL (80.0-100.0); MEAN PLATELET VOLUME 9.1 fL (7.4-11.0); MONOCYTES # (AUTO) 0.1 x10^3/uL (0.3-0.8); MONOCYTES % (AUTO) 1.9 % (0.0-13.0); NEUTROPHILS # (AUTO) 6.7 x10^3/uL (2.2-4.8); NEUTROPHILS % (AUTO) 86.4 % (42.0-75.0); PLATELET COUNT 153 X10^3/uL (150.0-450.0); RED BLOOD COUNT 5.72 X10^6/uL (4.7-6.0); RED CELL DISTRIBUTION WIDTH 13.5 % (11.6-16.5); WHITE BLOOD COUNT 7.7 X10^3/uL (3.6-10.0)
[2020-04-19 06:22] LABS: ALANINE AMINOTRANSFERASE 38 Units/L (12-78); ALBUMIN 3.9 g/dL (3.4-5.0); ALKALINE PHOSPHATASE 249 Units/L (46-116); ASPARTATE AMINO TRANSFERASE 20 Units/L (15-37); BLOOD UREA NITROGEN 14 mg/dL (7-18); CALCIUM 9.4 mg/dL (8.5-10.1); CARBON DIOXIDE 23.5 mmol/L (21-32); CHLORIDE 103 mmol/L (98-107); COR NA(FOR HYPERGLY) 142 mmol/L (136-145); CREATININE 1.13 mg/dL (0.70-1.30); MAGNESIUM 1.8 mg/dL (1.7-2.9); SODIUM 136 mmol/L (136-145); eGFR NON BLACK RACES > 60 (>60)
[2020-04-19 07:14] LABS: CREATINE KINASE 124 Units/L (39-308); CREATINE KINASE MB 1.2 ng/mL (0-4.0); TROPONIN I < 0.02 ng/mL (0-1.5)
[2020-04-19 09:59] LABS: BILIRUBIN,URINE NEGATIVE (NEGATIVE); BLOOD/HEMOGLOBIN,URINE NEGATIVE (NEGATIVE); GLUCOSE, URINE 4+ (NEGATIVE); KETONES,URINE 1+ (NEGATIVE); LEUKOCYTE ESTERASE ,URINE NEGATIVE (NEGATIVE); NITRITES,URINE NEGATIVE (NEGATIVE); PROTEIN,URINE 1+ (NEGATIVE); UROBILINOGEN,URINE NORMAL (NORMAL)
[2020-04-19] MEDS ORDERED: GLUCOTROL PO SCH (10:00)
[2020-04-19 10:13] LABS: APPEARANCE,URINE CLEAR (CLEAR); BACTERIA,URINE NEGATIVE /HPF (NEGATIVE); COLOR,URINE YELLOW (YELLOW); MUCUS,URINE RARE /HPF (NEGATIVE); RBC,URINE 0-2 /HPF (0-3); SQUAMOUS EPITHELIAL CELL,UR RARE /HPF (NEGATIVE)
--- NOTE | 2020-04-19 10:31 | CT ---
HISTORYHemoptysisSTUDYCT chest with contrastTechnique: Axial post-contrast images with coronal and sagittal reformats. Dose reduction procedures were used with mA/kv adjusted for body size.[id number]/01/2020FINDINGSExamination of the mediastinum demonstrated no evidence for mediasti nal masses, enlarged mediastinal or enlarged hilar adenopathy or significant aortic abnormality. No p leural effusions are identified. No chest wall or axillary abnormality is identified. Those portions of the upper abdominal organs visualized were within normal limits. Examination of the lung medina de monstrated no significant nodules, masses, alveolar infiltrates, areas of consolidation, peribronchia l thickening, or bronchiectasis. Calcified granulomas are present bilaterally.IMPRESSIONLungs clearSc attered benign calcified granulomasElectronically signed by: FARSHAD STRONG (Apr 19, 2020 10:29:42)
[2020-04-19] MEDS: GLUCOPHAGE XR 24-HR PO SCH ×2 (10:43→10:49)
[2020-04-19 11:45] LABS: CKMB % 1.2 % (<4); CREATINE KINASE 100 Units/L (39-308); CREATINE KINASE MB 1.2 ng/mL (0-4.0); TROPONIN I < 0.02 ng/mL (0-1.5)
[2020-04-19 12:43] VITALS: BP 112/59
[2020-04-19] MEDS ORDERED: SNACK - Diabetic Appropriate PO SCH ×2 (20:00)
--- NOTE | 2020-04-30 14:06 | DR.CARTERS ---
Short Stay Summary - Admission Date Date of Admission: 04/19/20 - Discharge Date Discharge Date: 04/20/20 - Admission Diagnoses (1) Acute hyperglycemia Status: Acute (2) Hemoptysis Status: Acute - Hospital Course Hospital Course: TIME SPENT ON CLINICAL ASSESSMENT, REVIEWING LABS AND IMAGING, DECISION MAKING, DOCUMENTATION WAS GREATER THAN 75 MINUTES. IS A 49 YEAR OLD PATIENT OF OURS. HE PRESENTED TO THE ER WITH FAMILY REPORTING THAT PATIENT HAD ALTERED MENTAL STATUS, COUGH, SLURRED SPEECH, AND WEAKNESS. PATIENT REPORTED THAT HE HAD NUMBNESS AND TINGLING AROUND THE MOUTH. HE ALSO ADMITS TO COUGHING UP BLOOD. FAMILY REPORTED THAT PATIENTS BLOOD GLUCOSE WAS CHECKED AND WAS TOO HIGH TO READ ON HOME MONITOR. THEY REPORTED GIVING HIM 16 UNITS OF HUMULIN R INSULIN. PATIENTS MENTAL STATUS APPARENTLY IMPROVED AFTER RECEIVING THE INSULIN. PATIENTS SPOUSE REPORTED THAT PATIENT HAD RECENTLY RECEIVED A STEROID INJECTION IN THE SHOULDER AND FEELS THAT MAY HAVE INCREASE HIS BLOOD GLUCOSE. PATIENT DENIED FEVER, VOMITING, DIARRHEA, OR TRAUMA. ON ARRIVAL TO THE ER, VITALS WERE 97.1-91-16-96%-111/73. LABS WERE OBTAINED. ABNORMAL LAB VALUES INCLUDE THE FOLLOWING: SODIUM 126, CHLORIDE 93, CREATININE 1.55, GLUCOSE 881, TOTAL BILI 1.01, ALK PHOS 289. EKG REVEALED: SINUS RHYTHM WITH HR 84. A BRAIN CT WAS OBTAINED AND REVEALED: 1. No skull fracture, intracranial hemorrhage, discernible acute infarction, mass lesions, midline shift, mass effect or hydrocephalus seen. 2. Consider followup evaluation with MRI /MRA imaging for further assessment as clinically warranted. A CHEST XRAY WAS OBTAINED AND REVEALED: 1. No focal consolidation is seen. 2. The heart size is normal. IN THE ER, HE WAS GIVEN A NORMAL SALINE BOLUS X 2 LITERS AND STARTED ON AN INSULIN DRIP. HIS BLOOD GLUCOSE LEVEL DROPPED TO 398. HE WAS ADMITTED TO THE HOSPITAL FOR FURTHER EVALUATION AND TREATMENT OF HYPEROSMOLAR NON-KETOTIC HYPERGLYCEMIA. INSULIN DRIP AND IV FLUIDS WERE REMOVED. WE WILL OBTAIN A CHEST CT WITH CONTRAST. OTHERWISE, WE PLANNED TO FOLLOW UP WITH AM LABS AND CONTINUE TO MONITOR. ON THE MORNING FOLLOWING ADMISSION, PATIENT IS ALERT AND ORIENTED, SITTING ON THE SIDE OF THE BED ON MORNING ROUNDS. HE REPORTS SHORTNESS OF BREATH AT TIMES, OTHERWISE, HE REPORTS FEELING WELL AND DENIES OTHER COMPLAINTS. HE REMAINS ON THE INSULIN DRIP. HIS GLUCOSE LEVELS HAVE REMAINED IN THE UPPER 200s-300s WITH THE HIGHEST BEING 374 THROUGHOUT THE NIGHT. ON EXAMINATION, HEART IS REGULAR IN RATE AND RHYTHM. BILATERAL LUNGS ARE NOTED WITH DIMINISHED LUNG SOUNDS THROUGHOUT. ABDOMEN IS ROUND, SOFT, AND NON-TENDER WITH NORMAL BOWEL SOUNDS NOTED IN ALL QUADRANTS. HIS VITALS THIS MORNING ARE: 98.1-88-20-93%-112/59. LABS WERE OBTAINED. ABNORMAL LAB VALUES INCLUDE THE FOLLOWING: GLUCOSE 368, ALK PHOS 249. CARDIAC ENZYMES ARE WITHIN NORMAL LIMITS. URINALYSIS WAS OBTAINED AND IS UNREMARKABLE. ACETONES NEGATIVE. A CHEST CT WITH CONTRAST WAS OBTAINED AND RVEALED: Examination of the mediastinum demonstrated no evidence for mediastinal masses, enlarged mediastinal or enlarged hilar adenopathy or significant aortic abnormality. No pleural effusions are identified. No chest wall or axillary abnormality is identified. Those portions of the upper abdominal organs visualized were within normal limits. Examination of the lung medina demonstrated no significant nodules, masses, alveolar infiltrates, areas of consolidation, peribronchial thickening, or bronchiectasis. Calcified granulomas are present bilaterally. WE PLANNED FOR DISCHARGE. INSTRUCTIONS FOR MEDICATIONS AND FOLLOW UP WERE DISCUSSED WITH PATIENT AND FAMILY. HE WAS GIVEN INSTRUCTIONS TO CONTINUE THE METFORMIN 500MG PO BID. WE WILL INCREASE THE OZEMPIC TO 1MG SC WEEKLY. WE WILL ALSO ADD GLIPIZIDE 2.5MG PO BID. HE WAS INSTRUCTED TO FOLLOW UP IN THE OFFICE ON 04/26/20. PATIENT WAS DISCHARGED HOME WITH FAMILY IN STABLE IMPROVED CONDITION. TIME SPENT ON CLINICAL ASSESSMENT, REVIEWING LABS AND I MAGING, DECISION MAKING, DOCUMENTATION, AND PREPARING DISCHARGE PAPERS WAS GREATER THAN 75 MINUTES. - Discharge Medications Discharge Medications: Home Medication List Ozempic 1 mg SUBCUT QWEEK #1 unit 04/19/20 [Rx] atorvastatin 40 mg PO HS 04/19/20 [History] glipizide 2.5 mg PO BID #30 tab 04/19/20 [Rx] metformin 500 mg PO BID 04/19/20 [History] omeprazole 40 mg PO HS 04/19/20 [History] ropinirole 3 mg PO TID 04/19/20 [History] Prescriptions: glipizide Bulmaro Dominguez Risks, benefits, and alternatives of opioids discussed: Yes - Discharge Plan Disposition: 01 HOME, SELF-CARE Condition: Stable Prescriptions: glipizide 2.5 mg PO BID #30 tab - Follow up/Referrals Follow up/Referrals: Bulmaro Dominguez [Primary Care Provider] - 04/26/20 10:15 am (TeleMed Appointment) - Instructions Instructions: Form - Daily Diabetes Record, Type 2 Diabetes Mellitus, Self Care, Adult, Ebfr-iu-Lges, Hyperglycemia, Hypertension, Lmci-io-Ectd Additional Instructions: [place] (lean protein/vegetable) diet as tolerated. activity as tolerated. Forms: Excuse From Work or School, Precautions for COVID19, Patient Portal, Social Distancing
== END 2020-04-19 11:30 | disposition home or self-care (01) | DRG 638 ==
LOC: ER 21:11 → INTOOBSV 04-19 02:08 → MED/SURG 04-19 02:08
PROVIDERS: ADMIT Internal Medicine; ATTEND Internal Medicine